=== PATIENT | female | born 1985 | race Caucasian/White ===

== ENCOUNTER 2016-10-20 07:49 | Inpatient (IN) | payer BC ==
[2016-10-16 15:52] VITALS: BMI 43.0
[2016-10-20] MEDS ORDERED: ceFAZolin 3 GM in SODIUM CHLORIDE 0.9% 100 ML IVPB ONE (08:04)
[2016-10-20] MEDS ORDERED: LACTATED RINGERS 1,000 ML IV ONE (08:04)
[2016-10-20] MEDS ORDERED: CITRIC ACID-SODIUM CITRATE 15 ML CUP PO ONE (08:04)
[2016-10-20] MEDS ORDERED: LACTATED RINGERS 1,000 ML IV SCH ×2 (08:15→11:00)
[2016-10-20 08:58] LABS: Basophils # (A) 0.1 k/uL (0-0.2); Basophils % (A) 1 %; CHCM 34.5; Eosinophils # (A) 0.3 k/uL (0-0.7); Eosinophils % (A) 3 %; HCT 35.2 % (34.0-46.0); HDW 3.38; HGB 11.7 gm/dL (11.4-16.0); Luc # (Auto) 0.11; Luc % (Auto) 1; Lymphocytes % (A) 20 %; MCH 30.1 pg (25.0-35.0); MCHC 33.3 g/dL (31.0-37.0); MCV 90.4 fL (80.0-100.0); Mean Platelet Volume 7.7; Monocytes # (A) 0.5 k/uL (0-1.0); Monocytes % (A) 5 %; Neutrophils # (A) 7.1 k/uL (1.3-7.7); Neutrophils % (A) 70 %; RDW 14.2 % (11.5-15.5); WBC 10.1 k/uL (3.8-10.6); WBC (Perox) 10.48
[2016-10-20] MEDS ORDERED: PHENYLEPHRINE-0.9% NACL SYG 1 MG/10 ML SYRINGE ONE (09:53)
[2016-10-20] MEDS ORDERED: MORPHINE SULFATE (PF) 0.3 MG/0.3 ML SYR ONE (09:53)
[2016-10-20] MEDS ORDERED: KETOROLAC 30 MG/ML 1 ML VIAL ONE (09:53)
[2016-10-20] MEDS ORDERED: OXYTOCIN 10 UNIT/ML 1 ML VIAL IM ONE (09:53)
[2016-10-20] MEDS ORDERED: NALBUPHINE 10 MG/ML AMPUL ONE (09:53)
[2016-10-20] MEDS ORDERED: ONDANSETRON 4 MG/2 ML VIAL ONE (09:53)
[2016-10-20] MEDS ORDERED: ACETAMINOPHEN TAB 325 MG TAB PO PRN (10:48)
[2016-10-20] MEDS ORDERED: diphenhydrAMINE 50 MG CAP PO PRN (10:48)
[2016-10-20] MEDS ORDERED: METOCLOPRAMIDE 5 MG/ML 2 ML VIAL IVP PRN (10:48)
[2016-10-20] MEDS ORDERED: LANOLIN CREAM 5 GM TUBE TOPICAL PRN (10:48)
[2016-10-20] MEDS ORDERED: diphenhydrAMINE 50 MG/ML 1 ML VIAL IVP PRN ×2 (10:48)
[2016-10-20] MEDS ORDERED: diphenhydrAMINE 25 MG CAP PO PRN (10:48)
[2016-10-20] MEDS ORDERED: Acetaminophen-Codeine 300-30mg TAB PO PRN (10:48)
[2016-10-20] MEDS ORDERED: MEASLES-MUMPS-RUBELLA VACC/PF 12,500 UNIT/0.5 ML VIAL SQ ONE (10:48)
[2016-10-20] MEDS ORDERED: ZOLPIDEM 5 MG TAB PO PRN (10:48)
--- NOTE | 2016-10-20 10:55 | P.HPOB ---
History of Present Illness H&P Date: 10/20/16 Chief Complaint: 39-2/7 weeks, previous section, requesting repeat with tubal ligat The patient is a 31-year-old 4 para 2012 admitted at 39-2/7 weeks as established by last menstrual period and confirmed by 9 week ultrasound. She is admitted with a history of 2 previous sections and requesting a repeat with intraoperative tubal ligation. Consent was signed to that effect in the office. Her has been essentially otherwise uncomplicated though she is morbidly obese and has a been found to be rubella nonimmune. Group B strep status is negative. 4 para 201-2 previous term sections without complication. She did have one early miscarriage not requiring D&C. Current statistics are listed in history present illness. EDC of 10/25/2016 was established by last menstrual period and confirmed by 9 week ultrasound. Laboratory workup done traits of blood type of O+ with a negative antibody screen. Rubella status is nonimmune. Remainder of the laboratory workup was within normal limits. Early Glucola was elevated but followed by a normal three-hour glucose tolerance test. Second trimester Glucola was within normal limits. Group B strep status is negative Gynecologic history is unremarkable with no history of any infections to include STDs. Review of Systems Review of systems is confined to history of present illness. Past Medical History Past Medical History: Asthma, Musculoskeletal Disorder Additional Past Medical History / Comment(s): Scoliosis History of Any Multi-Drug Resistant Organisms: None Reported Past Surgical History: Section Additional Past Surgical History / Comment(s): Oral surg. Past Anesthesia/Blood Transfusion Reactions: No Reported Reaction Past Psychological History: Depression Additional Psychological History / Comment(s): treated with wellbutrin Smoking Status: Current every day smoker Past Alcohol Use History: None Reported Past Drug Use History: None Reported - Past Family History Mother Family Medical History: No Reported History Medications and Allergies Home Medications Medication Instructions Recorded Confirmed Type #79/Iron Asp Gly/FA#1 1 each PO DAILY 10/16/16 10/20/16 History [Prenate Elite Tablet] Allergies Allergy/AdvReac Type Severity Reaction Status Date / Time No Known Allergies Allergy Verified 10/20/16 08:03 Exam - Vital Signs Vital signs: Vital Signs Temp Pulse Resp BP 10/20/16 08:14 96.9 F L 86 18 146/79 Intake and Output 10/19/16 10/20/16 10/20/16 22:59 06:59 14:59 Other: Weight 127.006 kg Patient Weight 10/21/16 06:59 Weight 127.006 kg In general, this is a morbidly obese white female in no acute distress. Her heart has a regular rhythm and rate without murmur. Her lungs are clear to auscultation bilaterally in all dalton. Her abdomen is obese, nondistended, gravid, has normal active bowel sounds, soft, nontender, and without any palpable masses aside from the uterine fundus. Her extremities without any cyanosis, clubbing, or significant edema and are nontender to palpation bilaterally. Digital cervical exam in addition is deferred. Results Result Diagrams: 10/20/16 08:30 Assessment and Plan (1) Previous section Status: Acute (2) Family planning Status: Acute (3) Term Status: Acute Plan: The patient is admitted for repeat low transverse section with intraoperative tubal ligation using Filshie clips. The risks and complications of the procedures have been thoroughly discussed including the permanent nature tubal ligation as well as its the failure rate and subsequent risk for ectopic . She has understood all this and agreed to proceed.
[2016-10-20] MEDS: OXYTOCIN 30 UNITS/500 ML NS 30 UNIT in SALINE 1 500ML.BAG IV SCH ×3 (10:59→22:27)
--- NOTE | 2016-10-20 11:02 | P.OP ---
Date of Procedure: 10/20/16 Preoperative Diagnosis: #1. 39-2/7 weeks intrauterine , previous section x2 #2. Undesired fertility Postoperative Diagnosis: Same Procedure(s) Performed: #1. Repeat low transverse section #2. Intraoperative bilateral tubal occlusion with Filshie clips Anesthesia: spinal Surgeon: Jose Ha Briquette Machine Operator Helper #1: Liberty Ye Estimated Blood Loss (ml): 500 IV fluids (ml): 1,400 Urine output (ml): 200 Pathology: other (Placenta) Condition: stable Disposition: floor Operative Findings: The patient was taken to the operating room where she was delivered of a viable 9 lbs. 6 oz. baby boy with Apgars of 8 at 1 minute and 9 at 5 minutes. The intraoperative uterine findings were essentially normal with normal uterus, tubes, and ovaries bilaterally. Was a moderate amount of scarring at the level of the fascia and muscles while the uterus remained relatively without scar. The placenta was delivered manually, intact, and grossly normal with a grossly normal three-vessel cord. Description of Procedure: The patient was prepped and draped in usual fashion after spinal anesthesia was administered by the anesthesiologist. A Pfannenstiel incision was made through pre-existing scar and extended into the abdominal cavity with minimal difficulty. The only significant the issue was some moderate scarring at the level of the fascia and muscles. The Dante self-retaining wound retractor was placed and the abdominal cavity in standard fashion. The bladder peritoneum was noted to be scarred somewhat high and therefore was elevated, incised, and reflected distally. The uterus was also significantly dextrorotated. A 2 cm incision was made in the transverse plane of the lower uterine segment to enter the uterus at which time clear fluid was noted. The incision was extended in both directions using the bandage scissors. The head was delivered up and through the incision where the nose and mouth were thoroughly suctioned. The remainder of the was delivered onto the field where the cord was doubly clamped, cut, and passed for resuscitative measures with weight and Apgars as noted above. A segment of cord was doubly clamped, cut, and set aside should cord gases become necessary. The placenta was delivered manually and intact as noted above. The uterus was exteriorized and the interior cavity of the uterus swept of any remaining placental or membranous fragments. The margins of the incision were grasped with Mulligan clamps and the incision closed in a single running locking stitch of 0 chromic catgut from margin to margin. Any small points of bleeding were then made hemostatic with the Bovie. The posterior cul-de-sac was suctioned with a guard and the uterine and ovarian findings were normal as noted above. After reaffirming the patient's desire for tubal ligation, a Filshie clip was placed across each fallopian tube approximately 2-3 cm from the cornu of the uterus and firmly affixed. The uterus was replaced within the abdominal cavity and the gutters were swept of any remaining blood, fluid, or clot. The incision was reexamined and any further small points of bleeding noted remained hemostatic with the Bovie. The Dante wound retractor was removed. Once hemostasis was adequate, a wide loose dgweuh-hn-yhcww stitch was utilized to loosely reapproximate the rectus muscles. The layer of rectus muscles was then examined and made hemostatic with the Bovie. The fascia was closed with 2 running stitches of 0 Vicryl proceeding from the lateral margins to the midpoint. The subcutaneous tissues were irrigated, made hemostatic with the Bovie, and reapproximated with a running stitch of 30 plain catgut. The skin was reapproximated with a running subcuticular stitch of 4-0 Vicryl followed by half-inch Steri-Strips placed with Mastisol. Estimated blood loss for the case was approximate 500 mL. There were no complications. All sponge, instrument, and needle counts were correct. Both mother and are resting comfortably in recovery.
[2016-10-20] MEDS: KETOROLAC 30 MG/ML 1 ML VIAL IVP PRN (15:51)
[2016-10-20] MEDS: SENNOSIDES-DOCUSATE SODIUM 1 EACH TAB PO SCH (19:57)
[2016-10-21] MEDS: KETOROLAC 30 MG/ML 1 ML VIAL IVP PRN ×2 (01:58→09:09)
[2016-10-21 07:29] LABS: Basophils % (A) 0 %; CH 30.9; CHCM 34.1; Eosinophils # (A) 0.3 k/uL (0-0.7); Eosinophils % (A) 2 %; HCT 31.3 % (34.0-46.0); HDW 3.33; HGB 10.4 gm/dL (11.4-16.0); Luc # (Auto) 0.08; Luc % (Auto) 1; Lymphocytes # (A) 1.8 k/uL (1.0-4.8); Lymphocytes % (A) 16 %; MCH 30.4 pg (25.0-35.0); MCHC 33.3 g/dL (31.0-37.0); MCV 91.3 fL (80.0-100.0); Mean Platelet Volume 7.6; Monocytes # (A) 0.6 k/uL (0-1.0); Monocytes % (A) 5 %; Neutrophils # (A) 8.4 k/uL (1.3-7.7); Neutrophils % (A) 76 %; RBC 3.43 m/uL (3.80-5.40); RDW 14.3 % (11.5-15.5); WBC 11.1 k/uL (3.8-10.6)
--- NOTE | 2016-10-21 07:40 | P.PN ---
Objective - Vital Signs Vital signs: Vital Signs Temp 98.3 F 10/21/16 04:00 Pulse 75 10/21/16 04:00 Resp 18 10/21/16 04:00 BP 128/75 10/21/16 04:00 Pulse Ox 100 10/21/16 04:00 Intake & Output 10/20/16 10/21/16 10/21/16 18:59 06:59 18:59 Intake Total 500 975 Output Total 1550 1400 Balance -1050 -425 Weight 127.006 kg Intake: IV 500 375 Lactated Ringers 1,000 ml 300 375 @ 125 mls/hr IV .Q8H RIC Rx#:[id number] Lactated Ringers 1,000 ml 100 @ 4000 mls/hr IV .Q15M ONE Rx#:[id number] ceFAZolin 3 gm In Sodium 100 Chloride 0.9% 100 ml @ 100 mls/hr IVPB ONCE ONE Rx#:[id number] Oral 600 Output: Urine 250 600 Uretheral (Herrera) 150 Emesis 800 800 Estimated Blood Loss 500 Other: Voiding Method Indwelling Catheter # Voids 1 - Labs CBC & Chem 7: 10/20/16 08:30
[2016-10-21] MEDS: SENNOSIDES-DOCUSATE SODIUM 1 EACH TAB PO SCH ×2 (09:10→21:17)
--- NOTE | 2016-10-21 09:17 | P.PN ---
Progress Note - Text 0904 Anesthesia POD 1. Patient is status post section under spinal anesthesia with intra-thecal preservative free morphine rate 100 g. Moderate pruritus now resolving, good post-op analgesia, and no headache or other complication.
[2016-10-21] MEDS: IBUPROFEN 600 MG TAB PO PRN (16:37)
[2016-10-21] MEDS: Acetaminophen-Codeine 300-30mg TAB PO PRN (21:16)
[2016-10-22] MEDS: IBUPROFEN 600 MG TAB PO PRN (05:57)
[2016-10-22] MEDS: SENNOSIDES-DOCUSATE SODIUM 1 EACH TAB PO SCH (08:47)
[2016-10-22] MEDS: Acetaminophen-Codeine 300-30mg TAB PO PRN (08:48)
[2016-10-22 08:55] VITALS: BP 149/76; PULSE 87; RESP 17; TEMP 98
--- NOTE | 2016-10-22 10:19 | P.DS ---
Providers Date of admission: 10/20/16 07:49 Expected date of discharge: 10/22/16 Attending physician: Jose Ha Primary care physician: [facility] Hospital Course: This is a 31-year-old female 3 para 2001 EDC 10/25/2016 at 39-2/7 weeks ' gestation. Patient presented for repeat section with tubal ligation. was essentially unremarkable, rubella status nonimmune. Please see dictated history and physical for details. Patient underwent a repeat low transverse section and tubal ligation. She gave to a liveborn male with scores of 8 and 9 at one and 5 minutes respectively. Infant weighed 9 lbs. 6 oz. or 4240 g. There was an estimated blood loss recorded of 500 mL's. Please see dictated delivery note for details. Postoperatively the patient has done well. Vital signs are stable this morning and she is afebrile. Circumcision has been performed on her son and he is doing well also. Patient's incision is clean and dry, well approximated, Steri-Strips applied, non-erythematous, no drainage. Fundus is firm and in the midline, symmetric, nontender, 18 week size. Extremities reveal trace edema. Chest is clear. Patient is being discharged home today in good condition. She will follow-up in the office with Dr. Ha in 2 weeks for incision check. I reminded her to call with any fevers shakes or chills, foul smelling or copious lochia, with the passage of large blood clots, with any pain not alleviated by over-the- counter products, or indeed with any concerns. She will use blyl-xso-orqmzrd Aleve or Advil as needed for pain. She may also use 200 mg ibuprofen tablets, for every 8 hours as needed. I've asked her to call with any fevers shakes or chills, foul smelling or copious lochia, with any pain not alleviated by over- the-counter products, with any redness or drainage of the incision, or indeed with any concerns. No driving for 2 weeks. No heavy lifting greater than 25 pounds. Patient Condition at Discharge: Good Plan - Discharge Summary Discharge Medication List #79/Iron Asp Gly/FA#1 [Prenate Elite Tablet] 1 each PO DAILY 01/16/17 [ History] Follow up Appointment(s)/Referral(s): Jose Ha MD [STAFF PHYSICIAN] - 2 Weeks Discharge Disposition: HOME SELF-CARE
== END 2016-10-22 13:24 | disposition home or self-care (01) | DRG 766 ==
LOC: 4FBP 07:49
PROVIDERS: ADMIT Obstetrics & Gynecology; ATTEND Obstetrics & Gynecology
PROC: 10D00Z1 Extraction of Products of Conception, Low, Open Approach (ICD-10-PCS; principal; 2016-10-20 10:00)
PROC: 0UL70CZ Occlusion of Bilateral Fallopian Tubes with Extraluminal Device, Open Approach (ICD-10-PCS; principal; 2016-10-20 10:00)
DX: O34.211 Maternal care for low transverse scar from previous cesarean delivery (principal); E66.01 Morbid (severe) obesity due to excess calories; Z37.0 Single live birth; O99.214 Obesity complicating childbirth; O99.334 Smoking (tobacco) complicating childbirth; F17.200 Nicotine dependence, unspecified, uncomplicated; Z3A.39 39 weeks gestation of pregnancy; Z30.2 Encounter for sterilization
CPT/HCPCS: 85025; 86850; 86900; 86901; 88307; 90471; 90707

== ENCOUNTER → 2017-05-17 | Outpatient (CLI) | payer OTHER ==
--- NOTE | 2017-05-17 11:16 | XR ---
EXAMINATION TYPE: XR knee complete RT DATE OF EXAM: 05/17/2017 CLINICAL HISTORY: Pain from a slip and fall TECHNIQUE: Three views of the right knee are obtained. COMPARISON: None. FINDINGS: There is no acute fracture/dislocation evident in right knee. The tri-compartment joint s paces appear within normal limits. The overlying soft tissue appears unremarkable. IMPRESSION: There is no acute fracture or dislocation in the right knee.
== END | disposition home or self-care (01) ==
LOC: RADXRMAIN 10:45
PROVIDERS: ATTEND Emergency Medicine
DX: S80.01XA Contusion of right knee, initial encounter (principal)

== ENCOUNTER → 2020-08-20 | Outpatient (CLI) | payer OTHER ==
[2020-08-20 14:30] LABS: Basophils # (A) 0.1 k/uL (0-0.2); Basophils % (A) 1 %; Eosinophils # (A) 0.3 k/uL (0-0.7); Eosinophils % (A) 3 %; HCT 44.3 % (34.0-46.0); HGB 14.2 gm/dL (11.4-16.0); Lymphocytes # (A) 2.2 k/uL (1.0-4.8); Lymphocytes % (A) 22 %; MCH 29.1 pg (25.0-35.0); MCHC 32.2 g/dL (31.0-37.0); MCV 90.4 fL (80.0-100.0); Mean Platelet Volume 7.1; Monocytes # (A) 0.4 k/uL (0-1.0); Monocytes % (A) 4 %; Neutrophils % (A) 69 %; Platelet Count 287 k/uL (150-450); RDW 13.4 % (11.5-15.5)
== END | disposition home or self-care (01) ==
LOC: LABPAT 12:40
PROVIDERS: ATTEND Obstetrics & Gynecology
DX: Z01.818 Encounter for other preprocedural examination (principal); N92.0 Excessive and frequent menstruation with regular cycle
CPT/HCPCS: 36415; 85025

== ENCOUNTER 2020-08-24 07:49 | Day surgery (SDC) | payer BC, OTHER ==
[2020-08-19 14:40] VITALS: BMI 38.3
[~2020-08-24 07:49] MED LIST: DEXAMETHASONE SOD PHOSPHATE 4 MG/ML 1 ML VIAL IV ONE; HYDROmorphone 0.5 MG/0.5 ML SYRINGE IVP PRN; LACTATED RINGERS 1,000 ML IV SCH; LIDOCAINE 1% (10MG/ML) FOR IV START INTRADERMA PRN; MIDAZOLAM 2 MG/2 ML VIAL IV PRN; ONDANSETRON 4 MG/2 ML VIAL IVP ONE; Pre Op ABX Message 1 EACH MISC MISCELLANE ONE
[2020-08-24] MEDS ORDERED: KETOROLAC 15 MG/ML 1 ML VIAL ONE (09:17)
[2020-08-24] MEDS ORDERED: MIDAZOLAM 2 MG/2 ML VIAL ONE (09:17)
[2020-08-24] MEDS ORDERED: LIDOCAINE 1% INJ 10MG/ML (20 ML MDV) ONE (09:17)
[2020-08-24] MEDS ORDERED: PROPOFOL 10 MG/ML 20 ML VIAL IV ONE (09:17)
[2020-08-24] MEDS ORDERED: fentaNYL (PF) 50 MCG/ML 2 ML AMP ONE (09:17)
[2020-08-24] MEDS ORDERED: diphenhydrAMINE 50 MG/ML 1 ML VIAL IVP PRN (10:04)
[2020-08-24] MEDS ORDERED: KETOROLAC 15 MG/ML 1 ML VIAL IVP PRN (10:04)
[2020-08-24] MEDS ORDERED: ONDANSETRON 4 MG/2 ML VIAL IVP PRN (10:04)
[2020-08-24] MEDS ORDERED: METOCLOPRAMIDE 5 MG/ML 2 ML VIAL IVP PRN (10:04)
[2020-08-24] MEDS ORDERED: IBUPROFEN 600 MG TAB PO PRN (10:04)
[2020-08-24] MEDS ORDERED: SIMETHICONE 80 MG CHEWABLE PO PRN (10:04)
[2020-08-24] MEDS ORDERED: Acetaminophen-Codeine 300-30mg TAB PO PRN ×2 (10:04)
--- NOTE | 2020-08-24 10:13 | P.OP ---
Date of Procedure: 08/24/20 Preoperative Diagnosis: #1. Menorrhagia Postoperative Diagnosis: Same Procedure(s) Performed: #1. Diagnostic hysteroscopy #2. Endometrial curettage #3. NovaSure endometrial ablation Anesthesia: other (Gen. by face mask) Surgeon: Jose Ha Estimated Blood Loss (ml): 5 IV fluids (ml): 300 Urine output (ml): 10 Pathology: other (Endometrial curettings) Condition: stable Disposition: PACU Operative Findings: Preoperative pelvic examination demonstrated a midplane to slightly retroverted 5-6 week uterus which was normal in shape and mobile. The adnexa were normal and without mass bilaterally. Intraoperatively, the cervix was approximate 4 synovators while uterus itself was approximate 6 cm in depth. The diagnostic hysteroscope failed to produce any reasonable pictures preprocedurally of the endometrium as was significant debris floating in the matrix as well as blood. The settings for the NovaSure tool were a length of 6.0 cm, a width of 4.6 cm for a total power 152 W. After a total run time of 68 seconds, the base unit read "procedure complete." The postprocedural result appeared to be generally very good throughout the there was 1 portion at the right cornu which appeared to not have the array touching it as perhaps it was a little bit deeper than the remainder of the endometrial cavity. The patient is a borderline candidate for vaginal hysterectomy should it become necessary. Description of Procedure: The patient was prepped and draped in usual fashion after general anesthesia was administered by the anesthesiologist. A weighted speculum was placed on the anterior lip of the cervix grasped with a single-tooth tenaculum after catheterizing the bladder approximate 10 mL of clear new urine. The sound was utilized to measure the uterine depth to be 10 cm while the cervix was approximate 4 cm. Serial dilation was carried out to admit the diagnostic hysteroscope. Both the myoma sure scope and the standard Striker scope were utilized and were unable to demonstrate adequate visualization of the in vitro cavity for any clear pictures. There did not appear to be any issues with perforation or significant pathology. The decision was made to proceed with the ablation and the scope was set aside. Given the degree of shaggy and a mutual tissue that was noted with the initial diagnostic hysteroscopy, decision was made to proceed with a D&C and advance. A medium endometrial curette was introduced into the endometrial cavity and thorough and circumferential curettage carried out bringing the tissue onto a Telfa placed in the vagina. The NovaSure tool was then placed into the endometrial cavity, opened, and seated well area the settings were as noted above with a length of 6.0 cm, a width of 4.6 and meters for a total power of 152 W. The cavity check was attempted and passed without difficulty. The tool was enabled and the run was started. After a run time of 68 seconds, the base unit disengaged and read "procedure complete." The 2 was closed, removed, and discarded. The diagnostic scope was replaced and the cavity was able to be seen well with an excellent result throughout though the right cornu appeared to have an area where the tip of the array failed to reach into that corner as it was perhaps deeper than the remainder of the cavity. All instrumentation was then removed and a small point of bleeding at one of the tenaculum sites was made hemostatic with pressure. Estimated blood loss for the case is approximately 5 mL. There were no complications. All sponge, instrument, and needle counts were correct. The patient tolerated the procedure well and proceeded to the recovery room in stable condition.
[2020-08-24 10:14] VITALS: TEMP 98.1
[2020-08-24] MEDS ORDERED: LACTATED RINGERS 1,000 ML IV SCH (10:15)
[2020-08-24 10:58] VITALS: RESP 16
[2020-08-24 11:09] VITALS: BP 118/73; PULSE 71
== END 2020-08-24 11:31 | disposition home or self-care (01) ==
LOC: OR 07:49
PROVIDERS: ATTEND Obstetrics & Gynecology
DX: N92.0 Excessive and frequent menstruation with regular cycle (principal); J45.909 Unspecified asthma, uncomplicated; M41.9 Scoliosis, unspecified; Z98.891 History of uterine scar from previous surgery; Z98.51 Tubal ligation status; Z98.890 Other specified postprocedural states; F17.210 Nicotine dependence, cigarettes, uncomplicated; Z82.49 Family history of ischemic heart disease and other diseases of the circulatory system; Z82.3 Family history of stroke; Z80.41 Family history of malignant neoplasm of ovary; Z83.42 Family history of familial hypercholesterolemia; Z79.1 Long term (current) use of non-steroidal anti-inflammatories (NSAID); Z79.899 Other long term (current) drug therapy; Z88.0 Allergy status to penicillin; Z91.048 Other nonmedicinal substance allergy status
CPT/HCPCS: 81025; 58563; J2250; J1100; J2405; J2001; J3010; J1885; J2704

== ENCOUNTER 2020-09-23 17:53 | Inpatient (IN) | payer OTHER ==
--- NOTE | 2020-09-23 18:05 | ED ---
Back Pain HPI - General Chief Complaint: Back Pain/Injury Stated Complaint: Back pain Time Seen by Provider: 09/23/20 18:02 Source: patient Limitations: no limitations - History of Present Illness Initial Comments: 35-year-old female with history of chronic back pain presenting to emergency by with a chief complaint of back pain. Patient reports the pain started yesterday but it is worse today, particularly in the morning. Patient reports pain is sharp in nature and is located along the left upper lumbar region. Patient states the pain is localized and exacerbated with any movement. Patient does report nausea with one episode of nonbilious and nonbloody vomiting. Patient denies any history of kidney stones. Denies any urinary or vaginal symptoms. Denies hematuria, hematochezia or melena. Denies any saddle anesthesia, urinary retention with overflow incontinence or bowel incontinence. - Related Data Home Medications Medication Instructions Recorded Confirmed DULoxetine HCL [Cymbalta] 60 mg PO HS 08/19/20 09/23/20 Pantoprazole Sodium [Protonix] 40 mg PO HS 09/23/20 09/23/20 Allergies Allergy/AdvReac Type Severity Reaction Status Date / Time No Known Allergies Allergy Verified 09/23/20 19:07 Review of Systems ROS Statement: Those systems with pertinent positive or pertinent negative responses have been documented in the HPI. ROS Other: All systems not noted in ROS Statement are negative. Past Medical History Past Medical History: Asthma, Musculoskeletal Disorder Additional Past Medical History / Comment(s): Scoliosis History of Any Multi-Drug Resistant Organisms: None Reported Past Surgical History: Section, Tubal Ligation Additional Past Surgical History / Comment(s): Oral surg., C/S x3, endometrial ablation Past Anesthesia/Blood Transfusion Reactions: No Reported Reaction Past Psychological History: Depression Smoking Status: Current every day smoker Past Alcohol Use History: Occasional Past Drug Use History: Marijuana - Past Family History Mother Family Medical History: No Reported History General Exam Limitations: no limitations General appearance: alert, in no apparent distress, obese Head exam: Present: atraumatic, normocephalic, normal inspection Eye exam: Present: normal appearance, PERRL, EOMI Pupils: Present: normal accommodation ENT exam: Present: normal exam, normal oropharynx, mucous membranes moist, TM's normal bilaterally, normal external ear exam Neck exam: Present: normal inspection, full ROM. Absent: tenderness Respiratory exam: Present: normal lung sounds bilaterally. Absent: respiratory distress, wheezes, rales, rhonchi, stridor Cardiovascular Exam: Present: regular rate, normal rhythm, normal heart sounds. Absent: systolic murmur, diastolic murmur GI/Abdominal exam: Present: soft. Absent: distended, tenderness, guarding Extremities exam: Present: normal inspection, full ROM, normal capillary refill. Absent: tenderness, pedal edema, joint swelling Back exam: Present: normal inspection, full ROM, tenderness, CVA tenderness (L). Absent: paraspinal tenderness, vertebral tenderness Neurological exam: Present: alert, oriented X3, normal gait Psychiatric exam: Present: normal affect, normal mood Skin exam: Present: warm, dry, intact, normal color Course Vital Signs 09/23/20 09/23/20 09/23/20 17:55 18:57 19:26 Temperature 97.8 F Pulse Rate 84 74 Respiratory 20 18 19 Rate Blood Pressure 144/82 127/82 O2 Sat by Pulse 98 99 Oximetry Medical Decision Making - Medical Decision Making 35-year-old female presenting to the emergency department with a chief complaint of back pain. On physical examination, this appears to be more of right CVA tenderness rather than any paraspinal or midline vertebral tenderness. I do have a concern for a renal stones further workup was obtained. UA reveals significant amount of red blood cells, some white blood cells as well as elevated leukocyte esterase. This was a voided sample so there is some squamous cells as well. Urine culture pending. CBC reveals leukocytosis of 14,000. Patient did have some nausea and vomiting and was treated with antibiotics, anal gesia and antiemetics. Patient was also given 1 g Rocephin. Her vitals are stable in the ED. CT of the abdomen and pelvis reveals a large renal stone in the proximal ureter measuring approximately 615 mm. Urology was consulted who advised admission and scheduled doses of Rocephin along with symptomatically control. Nothing by mouth. Case was discussed with Admitting is Dr Banks. - Lab Data Result diagrams: 09/23/20 18:29 09/23/20 18:29 Lab Results 09/23/20 09/23/20 09/23/20 Range/Units 18:29 18:29 18:40 WBC 14.4 H (3.8-10.6) k/uL RBC 4.83 (3.80-5.40) m/uL Hgb 14.3 (11.4-16.0) gm/dL Hct 42.2 (34.0-46.0) % MCV 87.3 (80.0-100.0) fL MCH 29.5 (25.0-35.0) pg MCHC 33.8 (31.0-37.0) g/dL RDW 13.5 (11.5-15.5) % Plt Count 262 (150-450) k/uL MPV 7.3 Neutrophils % 84 % Lymphocytes % 9 % Monocytes % 4 % Eosinophils % 2 % Basophils % 1 % Neutrophils # 12.0 H (1.3-7.7) k/uL Lymphocytes # 1.3 (1.0-4.8) k/uL Monocytes # 0.6 (0-1.0) k/uL Eosinophils # 0.3 (0-0.7) k/uL Basophils # 0.1 (0-0.2) k/uL Sodium 137 (137-145) mmol/L Potassium 4.5 (3.5-5.1) mmol/L Chloride 110 H (98-107) mmol/L Carbon Dioxide 19 L (22-30) mmol/L Anion Gap 8 mmol/L BUN 5 L (7-17) mg/dL Creatinine 0.70 (0.52-1.04) mg/dL Est GFR (CKD-EPI)AfAm >90 (>60 ml/min/1.73 sqM) Est GFR (CKD-EPI)NonAf >90 (>60 ml/min/1.73 sqM) Glucose 112 H (74-99) mg/dL Calcium 9.7 (8.4-10.2) mg/dL Total Bilirubin 1.0 (0.2-1.3) mg/dL AST 34 (14-36) U/L ALT 20 (4-34) U/L Alkaline Phosphatase 115 (38-126) U/L Total Protein 7.3 (6.3-8.2) g/dL Albumin 4.3 (3.5-5.0) g/dL Urine Color Yellow Urine Appearance Cloudy H (Clear) Urine pH 5.5 (5.0-8.0) Ur Specific [place] 1.027 (1.001-1.035) Urine Protein 2+ H (Negative) Urine Glucose (UA) Negative (Negative) Urine Ketones 1+ H (Negative) Urine Blood Moderate H (Negative) Urine Nitrite Negative (Negative) Urine Bilirubin Negative (Negative) Urine Urobilinogen <2.0 (<2.0) mg/dL Ur Leukocyte Esterase Moderate H (Negative) Urine RBC 146 H (0-5) /hpf Urine WBC 63 H (0-5) /hpf Ur Squamous Epith Cells 19 H (0-4) /hpf Calcium Oxalate Crystal Occasional H (None) /hpf Amorphous Sediment Rare H (None) /hpf Urine Bacteria Rare H (None) /hpf Hyaline Casts 11 H (0-2) /lpf Urine Mucus Many H (None) /hpf Disposition Clinical Impression: Left nephrolithiasis, Hydronephrosis, left Disposition: ADMITTED IP TO THIS HOSP Condition: Stable Is patient prescribed a controlled substance at d/c from ED?: No Referrals: Fortunato Gonzalez MD [Primary Care Provider] - 1-2 days Time of Disposition: 20:36
[2020-09-23] MEDS ORDERED: ONDANSETRON 4 MG/2 ML VIAL IVP STA (18:16)
[2020-09-23] MEDS ORDERED: SODIUM CHLORIDE 0.9% 1,000 ML IV STA (18:16)
[2020-09-23] MEDS ORDERED: KETOROLAC 15 MG/ML 1 ML VIAL IVP STA (18:16)
[2020-09-23 18:47] LABS: Basophils # (A) 0.1 k/uL (0-0.2); Basophils % (A) 1 %; Eosinophils # (A) 0.3 k/uL (0-0.7); Eosinophils % (A) 2 %; HCT 42.2 % (34.0-46.0); HGB 14.3 gm/dL (11.4-16.0); Lymphocytes # (A) 1.3 k/uL (1.0-4.8); Lymphocytes % (A) 9 %; MCH 29.5 pg (25.0-35.0); MCHC 33.8 g/dL (31.0-37.0); MCV 87.3 fL (80.0-100.0); Mean Platelet Volume 7.3; Monocytes # (A) 0.6 k/uL (0-1.0); Monocytes % (A) 4 %; Neutrophils % (A) 84 %; Platelet Count 262 k/uL (150-450); RBC 4.83 m/uL (3.80-5.40); RDW 13.5 % (11.5-15.5); WBC 14.4 k/uL (3.8-10.6)
[2020-09-23 18:59] LABS: Amorphous Sediment,Urine Rare /hpf; Appearance,Urine Cloudy (Clear); Bacteria,Urine Rare /hpf; Bilirubin,Urine Negative (Negative); Blood,Urine Moderate (Negative); Calcium Oxalate Crystals,Urine Occasional /hpf; Color,Urine Yellow; Glucose,Urine (UA) Negative (Negative); Hyaline Casts,Urine 11 /lpf (0-2); Ketones,Urine 1+ (Negative); Leukocyte Esterase,Urine Moderate (Negative); Mucus,Urine Many /hpf; Nitrite,Urine Negative (Negative); PH, Urine 5.5 (5.0-8.0); Protein,Urine 2+ (Negative); RBC,Urine 146 /hpf (0-5); Specific Gravity,Urine 1.027 (1.001-1.035); Squamous Epithelial Cell,Urine 19 /hpf (0-4); Urobilinogen,Urine <2.0 mg/dL (<2.0); WBC,Urine 63 /hpf (0-5)
[2020-09-23] MEDS ORDERED: cefTRIAXone IN SWFI 1,000 MG/10 ML SYRINGE IVP STA (19:20)
[2020-09-23 19:24] LABS: ALT 20 U/L (4-34); AST 34 U/L (14-36); African American GFR (CKD) >90 (>60 ml/min/1.73 sqM); Albumin 4.3 g/dL (3.5-5.0); Alkaline Phosphatase 115 U/L (38-126); Anion Gap 8 mmol/L; Blood Urea Nitrogen 5 mg/dL (7-17); Calcium 9.7 mg/dL (8.4-10.2); Carbon Dioxide 19 mmol/L (22-30); Chloride 110 mmol/L (98-107); Glucose 112 mg/dL (74-99); Non-African American GFR(CKD) >90 (>60 ml/min/1.73 sqM); Potassium 4.5 mmol/L (3.5-5.1); Sodium 137 mmol/L (137-145); Total Protein 7.3 g/dL (6.3-8.2)
[2020-09-23] MEDS ORDERED: MORPHINE SULFATE 4 MG/ML SYRINGE IVP STA (19:25)
--- NOTE | 2020-09-23 19:49 | CT ---
History: ITS.REASON CT Reason: conern for stone Exam: CT ABDOMEN + PELVIS Without Contrast Technique more: CTDI is 22.5 mGy and DLP is 1240.4 mGy-cm. Technique more: This CT exam was performed using one or more of the following dose reduction techniques: automated exposure control, adjustment of the mA and/or kV according to patient size, and/or use of iterative reconstruction technique. Comparison: None available FINDINGS: Lung bases are clear. Proximal left ureteral stone measuring up to 6 mm in greatest presenting transverse axis and 1.5 cm CC dimension which likely may not spontaneously pass, recommend urology consult. Mild-to- moderate left hydronephrosis with perinephric stranding, edema which may be reactive, forniceal rupture with superimposed infected obstructed system not excluded. No intrarenal stones. The other abdominal solid organs, gallbladder and abdominal aorta appear within limits on noncontrast imaging. No bowel dilation or free air. Normal caliber appendix without secondary signs. 1.8 cm cystic focus suggested left ovary axial 131. The right ovary is not well distinguished from adjacent unopacified bowel. Bilateral fallopian tube clips noted. The uterus and mostly collapsed bladder appear unremarkable on noncontrast imaging. Trace pelvic free fluid. Scoliosis. IMPRESSION: Proximal left ureteral stone measuring up to 6 mm in greatest presenting transverse axis and 1.5 cm CC dimension which likely may not spontaneously pass, recommend urology consult. Plwq-ma-mavqbhbi left hydronephrosis with perinephric stranding, edema which may be reactive, forniceal rupture with superimposed infected obstructed system not excluded. No intrarenal stones.
[2020-09-23] MEDS ORDERED: HYDROmorphone 0.5 MG/0.5 ML SYRINGE IVP PRN (20:26)
[2020-09-23] MEDS ORDERED: LORazepam 2 MG/ML INJ IV PRN (20:26)
[2020-09-23] MEDS ORDERED: MORPHINE SULFATE 4 MG/ML SYRINGE IV PRN (20:26)
[2020-09-23] MEDS ORDERED: NALOXONE 0.4 MG/ML 1 ML VIAL IV PRN (20:26)
[2020-09-23] MEDS: SODIUM CHLORIDE 0.9% 1,000 ML IV SCH (21:18)
[2020-09-23] MEDS: HYDROmorphone 1 MG/ML 1 ML SYRINGE IVP PRN (23:31)
[2020-09-24] MEDS: HYDROmorphone 1 MG/ML 1 ML SYRINGE IVP PRN ×5 (02:47→20:26)
[2020-09-24] MEDS: ONDANSETRON 4 MG/2 ML VIAL IVP PRN (05:48)
[2020-09-24] MEDS: SODIUM CHLORIDE 0.9% 1,000 ML IV SCH ×2 (10:46→23:30)
--- NOTE | 2020-09-24 11:34 | P.GSCN ---
History of Present Illness Consult date: 09/24/20 Reason for Consult: left-sided ureteral stone History of present illness: This is a 35-year-old female presented to the ED with severe left flank pain, that is associated with nausea and vomiting. She underwent a CT abdomen and pelvis which showed a 1.5 cm x 6 mm stone along the left ureter with hydronephrosis. Her UA on presentation is concerning for UTI. She denies any dysuria, gross hematuria, fevers/chills. Denies any previous history of stones. This am on evaluation she still having persistent left flank pain Review of Systems - Constitutional Denies chills, Denies fever - Cardiovascular Denies chest pain, Denies shortness of breath - Respiratory Denies cough, Denies 7 - Gastrointestinal Reports abdominal pain, Reports nausea, Reports vomiting - Genitourinary Genitourinary: Reports flank pain, Reports kidney stones, Denies dysuria, Denies hematuria - Neurological Denies headaches, Denies syncope Past Medical History Past Medical History: Asthma, Musculoskeletal Disorder Additional Past Medical History / Comment(s): Scoliosis History of Any Multi-Drug Resistant Organisms: None Reported Past Surgical History: Section, Tubal Ligation Additional Past Surgical History / Comment(s): Oral surg., C/S x3, endometrial ablation Past Anesthesia/Blood Transfusion Reactions: No Reported Reaction Past Psychological History: Anxiety, Depression Additional Psychological History / Comment(s): treated with wellbutrin Smoking Status: Current every day smoker Past Alcohol Use History: Occasional Additional Past Alcohol Use History / Comment(s): 1/2ppd 15 yrs. Past Drug Use History: Marijuana Additional Drug Use History / Comment(s): edible use - Past Family History Mother Family Medical History: No Reported History Medications and Allergies Home Medications Medication Instructions Recorded Confirmed Type DULoxetine HCL [Cymbalta] 60 mg PO HS 08/19/20 09/23/20 History Pantoprazole Sodium [Protonix] 40 mg PO HS 09/23/20 09/23/20 History Allergies Allergy/AdvReac Type Severity Reaction Status Date / Time No Known Allergies Allergy Verified 09/23/20 19:07 Surgical - Exam Vital Signs Temp Pulse Resp BP Pulse Ox 97.8 F 84 20 144/82 98 09/23/20 17:55 09/23/20 17:55 09/23/20 17:55 09/23/20 17:55 09/23/20 17:55 - General well developed, well nourished, moderate distress, moderate pain - Eyes PERRL, normal ocular movement - ENT normal nares, normal mucosa - Respiratory normal expansion, normal respiratory effort - Psychiatric oriented to time, oriented to person, oriented to place, speech is normal Results - Labs 09/23/20 18:29 09/23/20 18:29 Abnormal Lab Results - Last 24 Hours (Table) 09/23/20 09/23/20 09/23/20 Range/Units 18:29 18:29 18:40 WBC 14.4 H (3.8-10.6) k/uL Neutrophils # 12.0 H (1.3-7.7) k/uL Chloride 110 H (98-107) mmol/L Carbon Dioxide 19 L (22-30) mmol/L BUN 5 L (7-17) mg/dL Glucose 112 H (74-99) mg/dL Urine Appearance Cloudy H (Clear) Urine Protein 2+ H (Negative) Urine Ketones 1+ H (Negative) Urine Blood Moderate H (Negative) Ur Leukocyte Esterase Moderate H (Negative) Urine RBC 146 H (0-5) /hpf Urine WBC 63 H (0-5) /hpf Ur Squamous Epith Cells 19 H (0-4) /hpf Calcium Oxalate Crystal Occasional H (None) /hpf Amorphous Sediment Rare H (None) /hpf Urine Bacteria Rare H (None) /hpf Hyaline Casts 11 H (0-2) /lpf Urine Mucus Many H (None) /hpf Microbiology - Last 24 Hours (Table) 09/23/20 18:40 Urine Culture - Preliminary Urine,Voided Diabetes panel 09/23/20 Range/Units 18:29 Sodium 137 (137-145) mmol/L Potassium 4.5 (3.5-5.1) mmol/L Chloride 110 H (98-107) mmol/L Carbon Dioxide 19 L (22-30) mmol/L BUN 5 L (7-17) mg/dL Creatinine 0.70 (0.52-1.04) mg/dL Glucose 112 H (74-99) mg/dL Calcium 9.7 (8.4-10.2) mg/dL AST 34 (14-36) U/L ALT 20 (4-34) U/L Alkaline Phosphatase 115 (38-126) U/L Total Protein 7.3 (6.3-8.2) g/dL Albumin 4.3 (3.5-5.0) g/dL Calcium panel 09/23/20 Range/Units 18:29 Calcium 9.7 (8.4-10.2) mg/dL Albumin 4.3 (3.5-5.0) g/dL Pituitary panel 09/23/20 Range/Units 18:29 Sodium 137 (137-145) mmol/L Potassium 4.5 (3.5-5.1) mmol/L Chloride 110 H (98-107) mmol/L Carbon Dioxide 19 L (22-30) mmol/L BUN 5 L (7-17) mg/dL Creatinine 0.70 (0.52-1.04) mg/dL Glucose 112 H (74-99) mg/dL Calcium 9.7 (8.4-10.2) mg/dL Adrenal panel 09/23/20 Range/Units 18:29 Sodium 137 (137-145) mmol/L Potassium 4.5 (3.5-5.1) mmol/L Chloride 110 H (98-107) mmol/L Carbon Dioxide 19 L (22-30) mmol/L BUN 5 L (7-17) mg/dL Creatinine 0.70 (0.52-1.04) mg/dL Glucose 112 H (74-99) mg/dL Calcium 9.7 (8.4-10.2) mg/dL Total Bilirubin 1.0 (0.2-1.3) mg/dL AST 34 (14-36) U/L ALT 20 (4-34) U/L Alkaline Phosphatase 115 (38-126) U/L Total Protein 7.3 (6.3-8.2) g/dL Albumin 4.3 (3.5-5.0) g/dL Assessment and Plan Assessment: 35-year-old female history of a 1.5x 6 mm left-sided stone. She symptomatic from her stone. Discussed with her given her UA concerning of a UTI we cannot proceed with ureteroscopy in this setting. Will plan on proceeding with stent placement. Plan: -Continue Ceftrixone -NPO past midnight, OR tomorrow for cystoscopy, left stent placement
[2020-09-24] MEDS: KETOROLAC 15 MG/ML 1 ML VIAL IVP SCH ×3 (11:37→23:29)
[2020-09-24] MEDS: SENNOSIDES 8.6 MG TAB PO SCH (20:27)
[2020-09-24] MEDS ORDERED: PANTOPRAZOLE 40 MG TABLET PO SCH (21:00)
[2020-09-24] MEDS ORDERED: DULoxetine HCL 60 MG CAPSULE.DR PO SCH (21:00)
[2020-09-25] MEDS: HYDROmorphone 1 MG/ML 1 ML SYRINGE IVP PRN (03:43)
[2020-09-25] MEDS: KETOROLAC 15 MG/ML 1 ML VIAL IVP SCH ×2 (05:51→12:26)
[2020-09-25] MEDS: SENNOSIDES 8.6 MG TAB PO SCH (08:17)
[2020-09-25] MEDS: ONDANSETRON 4 MG/2 ML VIAL IVP PRN (08:19)
[2020-09-25 08:31] VITALS: RESP 16
[2020-09-25] MEDS ORDERED: PROPOFOL 10 MG/ML 20 ML VIAL IV ONE (09:17)
[2020-09-25] MEDS ORDERED: LIDOCAINE 1% INJ 10MG/ML (20 ML MDV) ONE (09:17)
[2020-09-25] MEDS ORDERED: DEXAMETHASONE SOD PHOSPHATE 10 MG/ML 1 ML VIAL ONE (09:17)
[2020-09-25] MEDS ORDERED: fentaNYL (PF) 50 MCG/ML 2 ML AMP ONE (09:17)
[2020-09-25] MEDS ORDERED: SODIUM CHLORIDE 0.9% 1,000 ML IV ONE (09:17)
[2020-09-25] MEDS ORDERED: MIDAZOLAM 2 MG/2 ML VIAL ONE (09:17)
[2020-09-25] MEDS ORDERED: SUCCINYLCHOLINE CHLORIDE 100 MG/5 ML SYR IV ONE (09:17)
[2020-09-25] MEDS ORDERED: ONDANSETRON 4 MG/2 ML VIAL ONE (09:17)
[2020-09-25] MEDS ORDERED: IOPAMIDOL-370 50ML BTL MISCELLANE ONE (09:34)
[2020-09-25] MEDS ORDERED: LACTATED RINGERS 1,000 ML IV ONE (09:38)
--- NOTE | 2020-09-25 09:45 | P.OP ---
Date of Procedure: 09/25/20 Preoperative Diagnosis: Left ureteral stone Postoperative Diagnosis: Same Procedure(s) Performed: Cystoscopy, left retrograde pyelogram and stent placement Implants: 6-Montserratian X 26 cm stent Anesthesia: SHIN Surgeon: Jd Banks Estimated Blood Loss (ml): 0 Pathology: none sent Condition: stable Disposition: PACU Indications for Procedure: Ms. Lundberg is 35-year-old female that presented to the ED with a 6 mm x 15 mm left ureteral stone. Additionally she had a UTI. She was symptomatic from her stone. I discussed with her given her symptoms and the left-sided stone, I recommend we proceed with a stent placement. Discussed the risk which includes but not limited to bleeding, infection, injury to the ureter. I also discussed that this is not a definitive treatment for the stone and she will need to have ureteroscopy in the future to address her stone. Discussed the risk of retained stent with her. She understood all risks and agree to proceed with a left stent placement Description of Procedure: Patient was brought to the operating room, general anesthesia was induced she which was prepped and draped in sterile fashion and placed in a dorsal lithotomy position. Cystoscopy fitted with a 22-Montserratian sheath was inserted per urethra, cystoscopy was performed showed no abnormality within the bladder. Attention was then carried to the left ureteral orifice which was intubated with a 6- Montserratian open-ended catheter, retrograde pyelogram was performed which showed a filling defect along the course of the proximal ureter with minimal contrast seen past the stone. A sensor wire was advanced through the catheter into the renal pelvis, the catheter was removed the wire in place. Next a 6-Montserratian by 26 cm stent was passed over the wire. The proximal curl was visualized on fluoroscopy and the distal curl was visualized using the cystoscope. There was return of cloudy urine from the collecting system. The bladder was emptied at the end of the case. The patient tolerated the procedure well and was taken to PACU in stable condition
--- NOTE | 2020-09-25 09:59 | FL ---
EXAMINATION TYPE: FL urography retrograde DATE OF EXAM: 09/25/2020 FLUOROSCOPY Fluoroscopy time of 9 seconds was used during stent placement. 1 image/s document/s the procedure.
[2020-09-25 10:03] VITALS: TEMP 97.1
[2020-09-25 10:30] VITALS: BP 121/60; PULSE 88
--- NOTE | 2020-09-25 23:42 | P.DS ---
Providers Date of admission: 09/23/20 20:17 Attending physician: Jd Banks MD Primary care physician: [facility] Course: 35 yo female that presented to the ED with a flank pain secondary to 1.5 cm left sided ureteral stone. She is she also had a UTI presentation. She was admitted to the hospital started on IV antibiotics. On 09/25 the patient was taken to the OR for left stent placement, please see op note dated 09/25 for surgery deta il. She was discharged home following stent placement. She will follow up in 1 week, and will subsequently be scheduled for left-sided ureteroscopy to address her stone. At time of discharge she was tolerating a diet, pain was controlled, she was ambulating Patient Condition at Discharge: Stable Plan - Discharge Summary New Discharge Prescriptions: New Tamsulosin [Flomax] 0.4 mg PO DAILY #10 cap Cephalexin [Keflex] 500 mg PO Q8HR #15 cap Ketorolac [Toradol] 10 mg PO Q6HR PRN #15 tab PRN Reason: Pain No Action DULoxetine HCL [Cymbalta] 60 mg PO HS Pantoprazole Sodium [Protonix] 40 mg PO HS Discharge Medication List DULoxetine HCL [Cymbalta] 60 mg PO HS 08/19/20 [History] Pantoprazole Sodium [Protonix] 40 mg PO HS 09/23/20 [History] Cephalexin [Keflex] 500 mg PO Q8HR #15 cap 09/25/20 [Rx] Ketorolac [Toradol] 10 mg PO Q6HR PRN #15 tab 09/25/20 [Rx] Tamsulosin [Flomax] 0.4 mg PO DAILY #10 cap 09/25/20 [Rx] Follow up Appointment(s)/Referral(s): Fortunato Gonzalez MD [Primary Care Provider] - 1-2 days Jd Banks MD [STAFF PHYSICIAN] - 1 Week Activity/Diet/Wound Care/Special Instructions: You may see some blood in the urine Increase her fluid intake
== END 2020-09-25 13:05 | disposition home or self-care (01) | DRG 661 ==
LOC: EC 17:53 → 4SSUR 20:17
PROVIDERS: ADMIT Urology; ATTEND Urology
PROC: 0T778DZ Dilation of Left Ureter with Intraluminal Device, Via Natural or Artificial Opening Endoscopic (ICD-10-PCS; principal; 2020-09-25 09:00)
DX: N13.6 Pyonephrosis (principal); F17.200 Nicotine dependence, unspecified, uncomplicated; J45.909 Unspecified asthma, uncomplicated; M41.9 Scoliosis, unspecified; F41.9 Anxiety disorder, unspecified; F32.9 Major depressive disorder, single episode, unspecified; Z98.891 History of uterine scar from previous surgery; Z98.51 Tubal ligation status
CPT/HCPCS: 36415; 74176; 74420; 80053; 81001; 81025; 85025; 87077; 87086; 87186; 96361; 96374; 96375; 99284

== ENCOUNTER → 2020-10-29 | Outpatient (CLI) | payer OTHER ==
[2020-10-29 10:37] LABS: Basophils # (A) 0.1 k/uL (0-0.2); Basophils % (A) 1 %; Eosinophils # (A) 0.3 k/uL (0-0.7); Eosinophils % (A) 5 %; HCT 41.1 % (34.0-46.0); HGB 13.4 gm/dL (11.4-16.0); Lymphocytes # (A) 1.6 k/uL (1.0-4.8); Lymphocytes % (A) 22 %; MCH 28.8 pg (25.0-35.0); MCHC 32.6 g/dL (31.0-37.0); MCV 88.3 fL (80.0-100.0); Mean Platelet Volume 6.8; Monocytes # (A) 0.3 k/uL (0-1.0); Monocytes % (A) 4 %; Neutrophils # (A) 4.8 k/uL (1.3-7.7); Neutrophils % (A) 67 %; Platelet Count 274 k/uL (150-450); RBC 4.65 m/uL (3.80-5.40); RDW 13.6 % (11.5-15.5); WBC 7.2 k/uL (3.8-10.6)
[2020-10-29 10:50] LABS: Appearance,Urine Clear (Clear); Bacteria,Urine Rare /hpf; Bilirubin,Urine Negative (Negative); Blood,Urine Negative (Negative); Color,Urine Yellow; Glucose,Urine (UA) Negative (Negative); Ketones,Urine Negative (Negative); Leukocyte Esterase,Urine Large (Negative); Mucus,Urine Rare /hpf; Nitrite,Urine Negative (Negative); PH, Urine 6.5 (5.0-8.0); Protein,Urine Trace (Negative); RBC,Urine <1 /hpf (0-5); Specific Gravity,Urine 1.008 (1.001-1.035); Urobilinogen,Urine <2.0 mg/dL (<2.0); WBC,Urine 59 /hpf (0-5)
[2020-10-29 11:07] LABS: African American GFR (CKD) >90 (>60 ml/min/1.73 sqM); Anion Gap 10 mmol/L; Blood Urea Nitrogen 7 mg/dL (7-17); Calcium 9.4 mg/dL (8.4-10.2); Carbon Dioxide 26 mmol/L (22-30); Chloride 104 mmol/L (98-107); Glucose 111 mg/dL (74-99); Non-African American GFR(CKD) >90 (>60 ml/min/1.73 sqM); Potassium 4.5 mmol/L (3.5-5.1); Sodium 140 mmol/L (137-145)
== END | disposition home or self-care (01) ==
LOC: LABPAT 09:10
PROVIDERS: ATTEND Urology
DX: Z01.818 Encounter for other preprocedural examination (principal); N20.1 Calculus of ureter
CPT/HCPCS: 36415; 80048; 81001; 85025; 87086

== ENCOUNTER 2020-11-05 10:27 | Day surgery (SDC) | payer OTHER ==
[2020-11-04 09:35] VITALS: BMI 39.1
--- NOTE | 2020-11-04 16:06 | P.HPIHPCON ---
History of Present Illness H&P Date: 11/04/20 Chief Complaint: Left ureteral stone This is a 35-year-old female with history of a 1.5 cm left ureteral stone. She is status post left stent placement on September 25. Option of ESWL, and ureteroscopy was discussed with her. She agreed to proceed with left-sided ureteroscopy. Discussed with her the risk which includes but not limited to bleeding, infection, injury to the ureter. Discussed with the risk of anesthesia with her. She understood all the risk and agreed to proceed left- sided ureteroscopy with holmium laser lithotripsy, stone basketing and possible stent exchange Consent for Procedure: I have explained the operation/procedure to the patient, including the risks, benefits, side effects, alternative therapies (including not receiving the proposed treatment or service), the likelihood of the patient achieving his/her goals, and potential recuperation problems for the procedure/sedation/analgesia, as well as any blood products, if indicated. I also explained to the patient the risks, benefits and side effects of the alternatives, as well as the risks related to not receiving the proposed procedure, care, treatment, or services. Past Medical History Past Medical History: Asthma, Musculoskeletal Disorder Additional Past Medical History / Comment(s): Scoliosis. kidney stones,. uti- currently on antibiotics History of Any Multi-Drug Resistant Organisms: None Reported Past Surgical History: Section, Tubal Ligation Additional Past Surgical History / Comment(s): Oral surg., C/S x3, endometrial ablation Past Anesthesia/Blood Transfusion Reactions: No Reported Reaction Smoking Status: Current every day smoker - Past Family History Mother Family Medical History: No Reported History Medications and Allergies Home Medications Medication Instructions Recorded Confirmed Type DULoxetine HCL [Cymbalta] 60 mg PO HS 08/19/20 11/04/20 History Pantoprazole Sodium [Protonix] 40 mg PO HS 09/23/20 11/04/20 History Cephalexin [Keflex] 500 mg PO Q8HR #15 cap 09/25/20 11/04/20 Rx Tamsulosin [Flomax] 0.4 mg PO DAILY #10 cap 09/25/20 11/04/20 Rx Allergies Allergy/AdvReac Type Severity Reaction Status Date / Time No Known Allergies Allergy Verified 11/04/20 09:10 Surgical - Exam - General well developed, well nourished, no distress, no pain - Eyes PERRL, normal ocular movement - ENT normal nares, normal mucosa - Respiratory normal expansion, normal respiratory effort - Abdomen Abdomen: soft, non tender - Psychiatric oriented to time, oriented to person, oriented to place Assessment and Plan Assessment: 35-year-old female with history of left-sided ureteral stone -Or for left-sided ureteroscopy, holmium laser lithotripsy, stone basketing, possible stent exchange
[~2020-11-05 10:27] MED LIST changes: -LIDOCAINE 1% (10MG/ML) FOR IV START INTRADERMA PRN; -Pre Op ABX Message 1 EACH MISC MISCELLANE ONE; +SCOPOLAMINE 1.5MG/72HR PATCH TRANSDERM ONE; +ceFAZolin 3 GM in SODIUM CHLORIDE 0.9% 100 ML IVPB PRN
--- NOTE | 2020-11-05 11:07 | XR ---
KUB HISTORY: Kidney stones, left ureteral calculus Frontal KUB and [address] scan 09/23/2020 There is a double-J stent present on the left. Proximal left ureteral calculus is noted correlating w ith the CT findings and measuring approximately 2.2 cm in greatest transverse dimension. There is a s romel curvature. Fallopian tubal ligation clips are present in the pelvis. Some scattered phleboliths are present within the pelvis. IMPRESSION: Left nephrolithiasis or proximal ureteral lithiasis. Double-J stent in place. Postprocedu ral changes.
[2020-11-05] MEDS ORDERED: SUCCINYLCHOLINE CHLORIDE 100 MG/5 ML SYR IV ONE (11:46)
[2020-11-05] MEDS ORDERED: fentaNYL (PF) 50 MCG/ML 2 ML AMP ONE (11:46)
[2020-11-05] MEDS ORDERED: ROCURONIUM 10 MG/ML (10 ML VIAL) IV ONE (11:46)
[2020-11-05] MEDS ORDERED: PROPOFOL 10 MG/ML 20 ML VIAL IV ONE (11:46)
[2020-11-05] MEDS ORDERED: MIDAZOLAM 2 MG/2 ML VIAL ONE (11:46)
[2020-11-05] MEDS ORDERED: LIDOCAINE 1% INJ 10MG/ML (20 ML MDV) ONE (11:46)
[2020-11-05] MEDS ORDERED: IOPAMIDOL-370 50ML BTL MISCELLANE ONE ×2 (12:17)
[2020-11-05 12:59] VITALS: TEMP 96.9
--- NOTE | 2020-11-05 13:12 | P.OP ---
Date of Procedure: 11/05/20 Preoperative Diagnosis: Left ureteral stone Postoperative Diagnosis: Same Procedure(s) Performed: Cystoscopy, left retrograde pyelogram, ureteroscopy, holmium laser lithotripsy, stone basketing and stent exchange Implants: 6-Somali by 24 cm stent Anesthesia: RANDOLPHA Surgeon: Jd Banks Estimated Blood Loss (ml): 1 Pathology: other (left ureteral stone) Condition: stable Disposition: PACU Indications for Procedure: This is a 35-year-old female with history of a 1.5 cm left ureteral stone. She is status post left stent placement on September 25. Option of ESWL, and ureteroscopy was discussed with her. She agreed to proceed with left-sided ureteroscopy. Discussed with her the risk which includes but not limited to bleeding, infection, injury to the ureter. Discussed with the risk of anesthesia with her. She understood all the risk and agreed to proceed left- sided ureteroscopy with holmium laser lithotripsy, stone basketing and possible stent exchange Operative Findings: Large stone in the proximal ureter that migrated to upper pole Description of Procedure: Patient was brought to the operating room, general anesthesia was induced She was prepped and draped in sterile fashion a placemed in dorsal lithotomy position. Cystoscopy fitted with a 21-Somali sheath was inserted per urethra, cystoscopy was performed showed no abnormality within the bladder. The stent was grasped using the stent grasper and removed to the meatus. Next a sensor wire was advanced through the stent, and the stent was removed with the wire in place. Next a 6-Somali open-ended ureteral catheter was passed over the wire. Retrograde Polygram was performed which showed a filling defect at the UPJ, with no additional filling defect along the course of the ureter. Next a semirigid ureteroscope was inserted and advanced up to the proximal ureter. At this time the appeared that the stone has migrated into the kidney. At this time a sensor wire was advanced through the scope and the scope was withdrawn with the wire in place. Next a 1214 Somali access sheath was passed over the wire under fluoroscopy into the proximal ureter. The scope was advanced through the access sheath, renoscopy was performed which showed a large stone within the upper pole. Using the holmium laser the stone was fragmented into small fragments, the fragments were removed using the stone basket. The stone appeared to be of struvite consistency, thus maximal basketing was performed. Repeat ureteroscopy demonstrated no sizable fragments. Repeat renoscopy demonstrated no injury to the kidney. Pullback ureteroscopy demonstrated no injury to the ureter or any ureteral fragments. Next a sensor wire was advanced through the scope as it was withdrawn. Next a ureteral stent was passed over the wire, the proximal curl was visualized on fluoroscopy and distal curl was visualized in the cystoscope. The bladder was emptied and the case. The right side of the procedure well was taken to PACU in stable condition
[2020-11-05] MEDS ORDERED: LACTATED RINGERS 1,000 ML IV ONE (13:26)
[2020-11-05 13:31] VITALS: RESP 16
[2020-11-05 13:51] VITALS: BP 168/81; PULSE 64
--- NOTE | 2020-11-08 14:46 | FL ---
EXAMINATION TYPE: FL urography retrograde DATE OF EXAM: 11/05/2020 FLUOROSCOPY Fluoroscopy time of 11 seconds was used during left-sided lithotripsy and stent insertion. 2 image/s document/s the procedure.
== END 2020-11-05 14:02 | disposition home or self-care (01) ==
LOC: OR 10:27
PROVIDERS: ATTEND Urology
DX: N20.0 Calculus of kidney (principal); M41.9 Scoliosis, unspecified; J45.909 Unspecified asthma, uncomplicated; K21.9 Gastro-esophageal reflux disease without esophagitis; F17.200 Nicotine dependence, unspecified, uncomplicated; Z79.899 Other long term (current) drug therapy; Z87.442 Personal history of urinary calculi; Z98.51 Tubal ligation status; Z98.891 History of uterine scar from previous surgery
CPT/HCPCS: 81025; 82365; 74420; 74018; 52356; C2625; C1894; C1758; C1769; J2250; J1100; J0690; J2405; J2001; J3010; J0330; J2704; Q9967

== ENCOUNTER → 2020-12-30 | Outpatient (CLI) | payer OTHER ==
--- NOTE | 2020-12-31 10:20 | US ---
EXAMINATION TYPE: US kidneys/renal and bladder DATE OF EXAM: 12/30/2020 COMPARISON: Radiographs 11/05/2020 CLINICAL HISTORY: 35-year-old female N13.30 Unspecified hydronephrosis. Follow-up from renal stone in left kidney with stenting. No pain at this time. TECHNIQUE: Multiple sonographic images of the kidneys and bladder are obtained. FINDINGS: EXAM MEASUREMENTS: Right Kidney: 13.0 x 6.9 x 4.9 cm Left Kidney: 11.6 x 6.3 x 5.0 cm No hydronephrosis on either side. Bladder: distended, anechoic Bilateral Jets seen IMPRESSION: No hydronephrosis. The patient's left ureteral stent is not clearly visualized.
== END | disposition home or self-care (01) ==
LOC: RADUSWWP 16:08
PROVIDERS: ATTEND Urology
DX: N13.2 Hydronephrosis with renal and ureteral calculous obstruction (principal)
CPT/HCPCS: 76770

== ENCOUNTER 2022-08-09 01:18 | Emergency (ER) | payer OTHER ==
[2022-08-09 01:26] VITALS: BP 163/89; PULSE 90; RESP 16; TEMP 97.9
[2022-08-09] MEDS ORDERED: HYDROcodone/APAP 5-325MG 1 EACH TAB PO STA (01:30)
[2022-08-09] MEDS ORDERED: ACET/COD 300 MG/30 MG STARTER PACK 6 TAB BTL PO STA (01:31)
[2022-08-09] MEDS ORDERED: AMOXIC-POT CLAV 875-125MG 1 EACH TAB PO STA (01:31)
--- NOTE | 2022-08-09 01:40 | ED ---
ENT HPI - General Chief complaint: Dental/Oral Stated complaint: Dental Pain Time Seen by Provider: 08/09/22 01:26 Source: patient, RN notes reviewed Mode of arrival: ambulatory - History of Present Illness Initial comments: This is a pleasant 37-year-old female who comes the ER complaining of right upper dental pain which is going on for quite some time. Patient states she was on Augmentin for a dental abscess and in fact, had plain the last Sunday which had to be rescheduled by the dentist. Patient ran out of her antibiotics now the area is worsening again. Patient has an appointment on Sunday with the Manjinder. No headache, no fever or chills, no changes in vision or hearing, no sore throat or difficulty with speech, no neck pain, no chest pain or shortness of breath, no abdominal pain, no nausea or vomiting, no changes in urination or bowel movements, no numbness or tingling, no extremity pain, no skin rashes or lesions. Past medical, surgical, social, and family history reviewed. MD complaint: tooth pain - Related Data Home Medications Medication Instructions Recorded Confirmed DULoxetine HCL [Cymbalta] 60 mg PO HS 08/19/20 11/04/20 Pantoprazole Sodium [Protonix] 40 mg PO HS 09/23/20 11/04/20 Previous Rx's Medication Instructions Recorded Cephalexin [Keflex] 500 mg PO Q8HR #15 cap 09/25/20 Tamsulosin [Flomax] 0.4 mg PO DAILY #10 cap 09/25/20 Ibuprofen 600 mg PO Q6H PRN #30 tab 11/05/20 Amoxic-Pot Clav 875-125Mg 1 tab PO Q12HR 1 Days #14 tab 08/09/22 [Augmentin 875-125] Allergies Allergy/AdvReac Type Severity Reaction Status Date / Time No Known Allergies Allergy Verified 11/05/20 10:56 Review of Systems ROS Statement: Those systems with pertinent positive or pertinent negative responses have been documented in the HPI. ROS Other: All systems not noted in ROS Statement are negative. Past Medical History Past Medical History: Asthma, Musculoskeletal Disorder Additional Past Medical History / Comment(s): Scoliosis History of Any Multi-Drug Resistant Organisms: None Reported Past Surgical History: Section, Tubal Ligation Additional Past Surgical History / Comment(s): Oral surg., C/S x3, endometrial ablation Past Anesthesia/Blood Transfusion Reactions: No Reported Reaction Past Psychological History: Anxiety, Depression Smoking Status: Current every day smoker - Past Family History Mother Family Medical History: No Reported History General Exam - General Exam Comments Initial Comments: Patient does not appear to be ill or toxic. Vital signs noted. Patient a bit hypertensive. Limitations: no limitations General appearance: alert, in no apparent distress Head exam: Present: atraumatic, normocephalic, normal inspection Eye exam: Present: normal appearance, EOMI ENT exam: Present: mucous membranes moist, TM's normal bilaterally, normal external ear exam. Absent: normal exam, mucous membranes dry Expanded Ear exam: Present: normal external inspection Mouth exam: Present: normal external inspection. Absent: drooling, trismus, muffled voice, tongue normal, tongue elevation, laceration Teeth exam: Present: dental caries, dental tenderness # (Adjacent to tooth #6 and 7), gingival enlargement, other (Evidence of adjacent enlargement consistent with a mild abscess.) Throat exam: normal inspection. negative: tonsillar erythema, tonsillomegaly, tonsillar exudate, R peritonsillar mass, L peritonsillar mass Neck exam: Present: normal inspection. Absent: tenderness, meningismus, lymphadenopathy Respiratory exam: Present: normal lung sounds bilaterally. Absent: respiratory distress, wheezes, rales, rhonchi, stridor Cardiovascular Exam: Present: regular rate, normal rhythm, normal heart sounds. Absent: systolic murmur, diastolic murmur, rubs, gallop, clicks GI/Abdominal exam: Present: soft. Absent: tenderness Extremities exam: Present: normal inspection Back exam: Present: normal inspection Neurological exam: Present: alert, oriented X3, CN II-XII intact Psychiatric exam: Present: normal affect, normal mood Course Vital Signs 08/09/22 01:21 Temperature 97.9 F Pulse Rate 90 Respiratory 16 Rate Blood Pressure 163/89 O2 Sat by Pulse 98 Oximetry Medical Decision Making - Medical Decision Making Patient has evidence of a mild dental abscess. I'm going to restart the patient on antibiotics and have her follow-up with the dentist on Sunday as planned. Discussed elevation of blood pressure. Patient did not appear to be ill or toxic. [place] given here. Acetaminophen/codeine starter pack given. Patient was told to return to the ER for any signs or symptoms worsen. Told to return immediately if any other problems arise. All questions answered. Treatment plan discussed. Patient in agreement Every effort has been made to ensure accuracy of this dictation. However, due to the limitations of electronic medical records and dictation devices, errors in charting still occur. Tail Edger Dr. Zarate Disposition Clinical Impression: Abscess, dental, Elevated blood pressure reading Disposition: HOME SELF-CARE Condition: Stable Instructions (If sedation given, give patient instructions): Dental Abscess (ED) Additional Instructions: follow-up with the dentist on Sunday as planned. Take antibiotics as directed. You can use the acetaminophen/codeine every 4-6 hours as needed for pain. Do not take that with regular Tylenol as he both have Tylenol in the medication. Do not operate machinery or drive vehicles while taking the codeine. Your blood pressure was elevated today. Make sure he follow-up with your regular doctor to keep an eye on blood pressure to make sure this was only a transient event. Is patient prescribed a controlled substance at d/c from ED?: No Referrals: Fortunato Gonzalez MD [Primary Care Provider] - 1-2 days Time of Disposition: 01:33
== END 2022-08-09 01:47 | disposition home or self-care (01) ==
LOC: EC 01:18
DX: K04.7 Periapical abscess without sinus (principal); R03.0 Elevated blood-pressure reading, without diagnosis of hypertension; J45.909 Unspecified asthma, uncomplicated; F32.A Depression, unspecified; F41.9 Anxiety disorder, unspecified; F17.200 Nicotine dependence, unspecified, uncomplicated; Z79.899 Other long term (current) drug therapy
CPT/HCPCS: 99282

== ENCOUNTER → 2022-09-18 | Outpatient (CLI) | payer OTHER ==
--- NOTE | 2022-09-18 21:43 | MR ---
EXAMINATION TYPE: MR lumbar spine wo con DATE OF EXAM: 09/18/2022 8:22 AM COMPARISON: None. CLINICAL INDICATION:Female, 37 years old with history of M54.50 LOW BACK PAIN, UNSP; TECHNIQUE: Multi planar, multi sequence imaging was performed utilizing: T1-weighted, T2-weighted, a nd turbo inversion recovery imaging of the lumbar spine. IV Contrast: None. FINDINGS: Alignment: The lumbar vertebral bodies have preserved heights and alignment. Cord: The conus medullaris and the distal spinal cord appear unremarkable with regards to their signa l intensity and morphology. Bones/Discs: Scattered Modic indicate changes most pronounced at the anterior superior endplate of L2 L4 and L5. Scattered mild osteophyte formation noted at L1-L2. Disc desiccation L5-S1. L1-L2: Eccentric right disc bulge without evidence for spinal canal stenosis or neural foraminal sten osis. L2-L3: No evidence of significant spinal canal stenosis or neural foraminal stenosis. L3-L4: No evidence of significant spinal canal stenosis or neural foraminal stenosis. L4-L5: No evidence of significant spinal canal stenosis or neural foraminal stenosis. L5-S1: No evidence of significant spinal canal stenosis or neural foraminal stenosis. IMPRESSION: 1. No definitive evidence of disc herniation or significant spinal canal stenosis. 2. Mild disc degeneration with associated osteoarthritic changes.
== END | disposition home or self-care (01) ==
LOC: RADMRIMAIN 07:27
PROVIDERS: ATTEND Orthopaedic Surgery
DX: M51.36 Other intervertebral disc degeneration, lumbar region (principal); M47.816 Spondylosis without myelopathy or radiculopathy, lumbar region
CPT/HCPCS: 72148

== ENCOUNTER → 2023-01-02 | Day surgery (SDC) | payer OTHER ==
[2023-01-01 08:25] VITALS: BMI 35.6
[~2023-01-02] MED LIST changes: -DEXAMETHASONE SOD PHOSPHATE 4 MG/ML 1 ML VIAL IV ONE; -HYDROmorphone 0.5 MG/0.5 ML SYRINGE IVP PRN; +IOPAMIDOL M200 10 ML VIAL ONE; +LACTATED RINGERS 1,000 ML IV ONE; +LIDOCAINE 1% (10MG/ML) FOR IV START INTRADERMA PRN; -MIDAZOLAM 2 MG/2 ML VIAL IV PRN; +MIDAZOLAM 2 MG/2 ML VIAL ONE; -ONDANSETRON 4 MG/2 ML VIAL IVP ONE; -SCOPOLAMINE 1.5MG/72HR PATCH TRANSDERM ONE; -ceFAZolin 3 GM in SODIUM CHLORIDE 0.9% 100 ML IVPB PRN; +fentaNYL (PF) 50 MCG/ML 2 ML AMP ONE; +methylPREDNISolone ACETATE 80 MG/ML 1 ML VIAL ONE
[2023-01-02 10:28] VITALS: TEMP 96
[2023-01-02 10:41] LABS: Glucose,Whole Blood 118 mg/dL (70-110)
--- NOTE | 2023-01-02 11:01 | P.PCN ---
Date of Procedure: 01/02/23 Procedure(s) Performed: PREOPERATIVE DIAGNOSIS: 1- Lumbar Degenerative Disc Diseases. 2-lumbar radiculopathy POSTOPERATIVE DIAGNOSIS: 1-lumbar degenerative disc disease. 2-lumbar radiculopathy. PROCEDURE 1. Lumbar epidural steroid injection under fluoroscopic guidance at the L5-S1 level. (Fluoroscopy imaging was available in radiology department) 2. Lumbar epidurogram. ANESTHESIA: moderate sedation with intravenous Versed 2 mg ,and fentanyle 100 Mcg Sedation start time : 1053 Sedation end time : 1058 EBL: Minimal PROCEDURE INDICATION: The patient with low back pain and radiculitis symptoms unresponsive to conservative treatment. Fluoroscopy was used to optimize visualization of the needle placement and to maximize safety. PROCEDURE DESCRIPTION / TECHNIQUE: The patient was seen and identified in the preoperative area. Risks, benefits, complications including but not limited to infections ,bleeding ,allergic reaction to the medications ,nerve damage and not complete pain releife , and alternatives were discussed with the patient. The patient agreed to proceed with the procedure and signed the consent. IV was started, and vital signs were stable. Patient was taken to the OR and time out was completed. The patient was placed in the prone position on procedure table and a pillow was placed under the abdomen to reduce lumbar lordosis. The lumbosacral area was prepped and draped in the usual sterile fashion.ere closely monitored during the procedure. Conscious sedation was used during the procedure to decrease patients anxiety. Vital signs was monitered during the entire procedure. Using anterior-posterior fluoroscopy, the L5-S1 interlaminar space was identified and the skin over this site was marked and then infiltrated with 1% lidocaine subcutaneously. Subsequently, a 20-gauge Tuohy epidural needle was inserted and advanced toward the epidural space using the ``Loss of resistance technique and guided by AP and lateral fluoroscopy. The correct needle position in the epidural space was verified with the injection of 2 mL of the water soluble contrast dye Isovue 200 contrast and observing an excellent epidurogram with the epidural spread of the dye, after negative aspiration for blood and CSF and in the absence of paresthesias. Again after negative aspiration, a 6 ml mixture containing 80 mg of Depo-medrol ( Preservetive Free ), and 2 ml of preservative free Normal Saline, and 2 ml of preservative free lidocaine 1% solution was injected and a washout of epidurogram was seen. Needle was withdrawn intact, skin was cleansed, and bandages were applied. COMPLICATIONS: None DISPOSITION / PLANS: The patient was placed in a supine position and transferred to the recovery area in a stable condition for observation. There was no evidence of lower extremity motor or sensory deficit after the procedure. Patient was discharged from the recovery room after meeting discharge criteria. Home discharge instructions were given to the patient by the staff. The patient was reexamined prior to discharge. The patient will schedule a follow up in the clinic in 2-4 weeks.
[2023-01-02 11:12] VITALS: RESP 18
--- NOTE | 2023-01-02 11:41 | FL ---
Intraoperative/procedural fluoroscopic services were provided. Total fluoroscopy time is 1 seconds wi th a total of 1 submitted images to PACS. Please see the operative/procedural note for further detail s. DAP: [id number]
[2023-01-02 11:43] VITALS: BP 128/63; PULSE 71
== END ==
LOC: ORPAIN 09:55
PROVIDERS: ATTEND Specialist
DX: M51.16 Intervertebral disc disorders with radiculopathy, lumbar region (principal); Z88.0 Allergy status to penicillin
CPT/HCPCS: 81025; 62323; J2250; J1040; J3010; Q9966

== ENCOUNTER → 2023-01-25 | Outpatient (CLI) | payer OTHER ==
[2023-01-25 11:49] VITALS: BP 125/86; PULSE 67; RESP 18
--- NOTE | 2023-01-25 13:51 | P.PAINPG ---
PQRS Measure Charge Sheet Comment: A 38 yr old male with a history of severe and chronic LBP secondary to lumbar DDD and spondylosis with facet arthropathy without myelopathy presents today for evaluation s/p JESUS L5-S1. Pt states she experienced 100 % pain relief x 1 wks s/p procedure. Pain level is provoked at 8/10 in intensity, constant, localized in the lumbar spine, sharp in character w shooting towards the L hip. Pain is provoked by weight bearing activity. Pain is alleviated with medications, THC products, injections, ice, heat, PT x 6 wks in 2021, chiropractic treatments semi monthly for the past year which she is currently in, home stretching regimen, repositioning and rest. Interventional pain procedures completed include JESUS L5-S1 x1 Patient is currently on Mobic Patient denies any side effects of the medication(s), denies excessive drowsiness or sleepiness, denies suicidal ideation and reports that the current pain medication is helping to control the pain and improve activities of daily living. Patient denies any motor or sensory deficits. Patient denies any fever or night sweats, denies any change in the bowel movements or urination. Physical Examination: -Constitutional: Cooperative. Not in acute distress . - Neurologic: Cranial nerve II to XII intact. No focal neurological deficits. - Psychatric: Alert & oriented x 3. Matching mood & appropriate affect. Judgment and insight intact. - Musculoskeletal: Cervical spine: Muscle bulk/ tone/ strength in the bilateral upper extremities normal Vertebral body tenderness to palpation over Spurling test positive Distraction test positive Facet loading test positive TTP Thoracic spine Muscle bulk / tone/ strength in the bilateral paraspinal muscles normal Vertebral body tender to palpation over Facet loading test positive TTP Lumbar spine: Motor bulk/ tone/ strength lower extremities , thigh and legs : 5/5 Deep tendon reflexes : Normal Knee Jerk. Normal Ankle Jerk . Vertebral body tenderness to palpation over L2 Lumbar Facet Loading Test positive Straight Leg Raise: positive at 30 degrees right side/ left side Gaenslen's Test positive Sacral spine : Severe tenderness over the Sacroiliac joint: right side / left side Range of motion: Flexion of the lumbar spine <60 degrees Range of motion: Extension of the lumbar spine <20 degrees Gaenslen's Test positive right side / left side Charlotte test: positive right side / left side Thigh Thrust Test positive right side / left side Sacral Thrust Test positive right side / left side Assessment and plan: Chronic LBP secondary to lumbar DDD, spondylosis with facet arthropathy without myelopathy Recommendation of L TFESI L1-L2 #1. May need a series of injections for optimal pain relief. Risks, benefits of procedure discussed and pt verbalized understanding. Admits to anticoagulant use or medical history of diabetes. Protocol for discontinuation/ continuation of medications rocio procedure discussed. All questions answered. I have spent less than 30 minutes on patient care today. Dr Ann was available by phone for the evaluation of this patient. The time was used to review the medical records including relevant urine studies and Prescription history (MAPs), review of the available imaging, evaluation and examination of the patient, coordination of care with the medical staff and if applicable referring physicians, as well as creation of the medical record PQRS Narrative: Smoking Status Current every day smoker Hx Alcohol Use (MH) Yes: OCCASIONAL Home Medications: Ambulatory Orders Pantoprazole Sodium [Protonix] 40 mg PO HS 09/23/20 Ascorbic Acid [Vitamin C] 1,000 mg PO DAILY 01/01/23 Cholecalciferol [Vitamin D3 (125 Mcg = 5000 Iu)] 205 mcg PO DAILY 01/01/23 Meloxicam [Mobic] 15 mg PO HS 01/01/23 Vilazodone HCl [Viibryd] 20 mg PO HS 01/01/23 metFORMIN HCL ER [Glucophage XR] 500 mg PO BID 01/01/23 traZODone HCL [Desyrel] 50 mg PO HS 01/01/23 Controlled Substance Measures - Controlled Substance Measures Is patient prescribed a controlled substance at discharge?: No
== END ==
LOC: PNWHC3 07:58
PROVIDERS: ATTEND Specialist
DX: M51.36 Other intervertebral disc degeneration, lumbar region (principal); M47.816 Spondylosis without myelopathy or radiculopathy, lumbar region; G89.29 Other chronic pain; F17.200 Nicotine dependence, unspecified, uncomplicated; Z88.0 Allergy status to penicillin
CPT/HCPCS: 99211

== ENCOUNTER 2023-02-22 08:54 | Day surgery (SDC) | payer OTHER ==
[~2023-02-22 08:54] MED LIST changes: -IOPAMIDOL M200 10 ML VIAL ONE; -LACTATED RINGERS 1,000 ML IV ONE; -MIDAZOLAM 2 MG/2 ML VIAL ONE; -fentaNYL (PF) 50 MCG/ML 2 ML AMP ONE; -methylPREDNISolone ACETATE 80 MG/ML 1 ML VIAL ONE
[2023-02-22 09:08] VITALS: TEMP 97.4
[2023-02-22 09:26] LABS: Glucose,Whole Blood 116 mg/dL (70-110)
[2023-02-22] MEDS ORDERED: IOPAMIDOL M200 10 ML VIAL ONE (09:35)
[2023-02-22] MEDS ORDERED: MIDAZOLAM 2 MG/2 ML VIAL ONE (09:35)
[2023-02-22] MEDS ORDERED: fentaNYL (PF) 50 MCG/ML 2 ML AMP ONE (09:35)
[2023-02-22] MEDS ORDERED: methylPREDNISolone ACETATE 40 MG/ML 1 ML VIAL ONE (09:35)
--- NOTE | 2023-02-22 09:47 | P.PCN ---
Date of Procedure: 02/22/23 Procedure(s) Performed: PREOPERATIVE DIAGNOSIS: 1-Lumbar radiculopathy . 2-lumbar degenerative disc disease. 3-lumbar spondylosis with lumbar facet arthropathy without myelopathy POSTOPERATIVE DIAGNOSIS: 1-lumbar radiculopathy. 2-lumbar degenerative disc disease. 3-lumbar spondylosis with facet arthropathy without myelopathy PROCEDURE 1. Transforaminal epidural steroid injection under fluoroscopic guidance at left L1-2 level. (Fluoroscopy images stored on file in the radiology Department ) 2. Lumbar epidurogram . ANESTHESIA: Local with 1% lidocaine 3 ml , moderate sedation with intravenous Versed 2 mg and fentanyle 100 micrograms. Sedation start time : 932 . Sedation. stop time : 943 . EBL: Minimal PROCEDURE INDICATION: The patient with low back pain and radiculopathy symptoms unresponsive to conservative treatment. PROCEDURE DESCRIPTION / TECHNIQUE: The patient was seen and identified in the preoperative area. Risks, benefits, complications, and alternatives were discussed with the patient. The patient agreed to proceed with the procedure and signed the consent. IV was started, and vital signs were stable. Patient was taken to the OR and time out was completed. The patient was placed in the prone position on procedure table and a pillow was placed under the abdomen to reduce lumbar lordosis. The lumbosacral area was prepped and draped in the usual sterile fashion. Critical pause was taken. Vital signs were closely monitored during the procedure. Conscious sedation was used during the procedure to decrease patient s anxiety. Using oblique fluoroscopy, the chin of the ``Art dog at left L1-2 level was identified, and the skin and deeper tissues just below was localized with 1% lidocaine. Subsequently, a 22-gauge 5-inch spinal needle was advanced under a tunneled view fluoroscopic guidance just underneath the chin of the ``Art dog at the left L1-2 Under lateral fluoroscopy, the needle was then advanced to the posterior border of the interforaminal space. After negative aspiration of CSF and blood and with no paresthesias, 1 mL Isovue 200 contrast dye was injected excellent epidurogram and outlining of the nerve root Subsequently, 3 mL of block solution containing 40 mg Depo-Medrol and 2 mL of 0.9% normal saline PF was injected. Needle was removed . At the end of the procedure, skin was cleansed, and bandages were applied. COMPLICATIONS:none DISPOSITION / PLANS: The patient was placed in a supine position and transferred to the recovery area in a stable condition for observation. There was no evidence of lower extremity motor or sensory deficit after the procedure. Patient was discharged from the recovery room after meeting discharge criteria. Home discharge instructions were given to the patient by the staff. The patient was reexamined prior to discharge.
[2023-02-22] MEDS ORDERED: LACTATED RINGERS 1,000 ML IV ONE (09:49)
[2023-02-22 10:11] VITALS: BP 145/78; PULSE 61; RESP 15
--- NOTE | 2023-02-22 17:55 | FL ---
EXAMINATION TYPE: FL guided pain mgmt statistic DATE OF EXAM: 02/22/2023 FLUOROSCOPY Fluoroscopy time of 10 seconds was used during transforaminal lumbar epidural injection. image/s docu ment/s the procedure. DOSE AREA PRODUCT (DAP) UGY*M,MGY*CM: 0.0681
== END 2023-02-22 10:20 | disposition home or self-care (01) ==
LOC: ORPAIN 08:54
PROVIDERS: ATTEND Specialist
DX: M51.16 Intervertebral disc disorders with radiculopathy, lumbar region (principal); M47.26 Other spondylosis with radiculopathy, lumbar region; Z88.9 Allergy status to unspecified drugs, medicaments and biological substances
CPT/HCPCS: 81025; 64483; J2250; J1030; J3010; Q9966

== ENCOUNTER → 2023-03-14 | Outpatient (CLI) | payer OTHER ==
[2023-03-14 11:55] VITALS: BP 151/95; PULSE 93; RESP 18; TEMP 97.9
--- NOTE | 2023-03-14 15:01 | P.PAINPG ---
PQRS Measure Charge Sheet Comment: A 38 yr old male with a history of severe and chronic LBP secondary to lumbar DDD and spondylosis with facet arthropathy without myelopathy presents today for evaluation s/p L TFESI L1-L2. Pt states she experienced 50 % pain relief x 1 1/2 wks s/p procedure. Pain level is provoked at 9 /10 in intensity, constant, localized in the L lumbar spine, sharp in character w shooting towards the BL ribs. Pain is provoked by lifting. Pain is alleviated with PT x 2 rounds in the last 2 yrs, chiropractic treatments semi monthly since age 14, heat, ice, medications, topical, repositioning and rest. Interventional pain procedures completed include L TFESI L1-L2, JESUS L5-S1 Patient is currently on Mobic Patient denies any side effects of the medication(s), denies excessive drowsiness or sleepiness, denies suicidal ideation and reports that the current pain medication is helping to control the pain and improve activities of daily living. Patient denies any motor or sensory deficits. Patient denies any fever or night sweats, denies any change in the bowel movements or urination. Physical Examination: -Constitutional: Cooperative. Not in acute distress . - Neurologic: Cranial nerve II to XII intact. No focal neurological deficits. - Psychatric: Alert & oriented x 3. Matching mood & appropriate affect. Ju dgment and insight intact. - Musculoskeletal: Cervical spine: Muscle bulk/ tone/ strength in the bilateral upper extremities normal Vertebral body tenderness to palpation over Spurling test positive Distraction test positive Facet loading test positive TTP Thoracic spine Muscle bulk / tone/ strength in the bilateral paraspinal muscles normal Vertebral body tender to palpation over Facet loading test positive TTP L taut bands w twitch response over L T8-L4 Lumbar spine: Motor bulk/ tone/ strength lower extremities , thigh and legs : 5/5 Deep tendon reflexes : Normal Knee Jerk. Normal Ankle Jerk . Vertebral body tenderness to palpation over Coto Test positive Lumbar Facet Loading Test positive Straight Leg Raise: positive at 30 degrees right side/ left side Gaenslen's Test positive Sacral spine : Severe tenderness over the Sacroiliac joint: right side / left side Range of motion: Flexion of the lumbar spine <60 degrees Range of motion: Extension of the lumbar spine <20 degrees Gaenslen's Test positive right side / left side Charlotte test: positive right side / left side Thigh Thrust Test positive right side / left side Sacral Thrust Test positive right side / left side Assessment and plan: Chronic LBP secondary to lumbar DDD, spondylosis with facet arthropathy without myelopathy Recommendation of L TPIs L T8-L4. May need a series of injections for optimal pain relief. Risks, benefits of procedure discussed and pt verbalized understanding. Admits to anticoagulant use or medical history of diabetes. Protocol for discontinuation/ continuation of medications rocio procedure discussed. Minimal anesthesia provided, if clinically indicated, consisting of Versed and Fentanyl. All questions answered. I have spent less than 30 minutes on patient care today. Dr Ann was a vailable by phone for the evaluation of this patient. The time was used to review the medical records including relevant urine studies and Prescription history (MAPs), review of the available imaging, evaluation and examination of the patient, coordination of care with the medical staff and if applicable referring physicians, as well as creation of the medical record PQRS Narrative: Smoking Status Current every day smoker Hx Alcohol Use (MH) Yes: OCCASIONAL Home Medications: Ambulatory Orders Pantoprazole Sodium [Protonix] 40 mg PO HS 09/23/20 Ascorbic Acid [Vitamin C] 1,000 mg PO DAILY 01/01/23 Cholecalciferol [Vitamin D3 (125 Mcg = 5000 Iu)] 205 mcg PO DAILY 01/01/23 Meloxicam [Mobic] 15 mg PO HS 01/01/23 Vilazodone HCl [Viibryd] 20 mg PO HS 01/01/23 metFORMIN HCL ER [Glucophage XR] 500 mg PO BID 01/01/23 traZODone HCL [Desyrel] 50 mg PO HS 01/01/23 Controlled Substance Measures - Controlled Substance Measures Is patient prescribed a controlled substance at discharge?: No
== END ==
LOC: PNWHC3 08:05
PROVIDERS: ATTEND Specialist
DX: M51.36 Other intervertebral disc degeneration, lumbar region (principal); M47.816 Spondylosis without myelopathy or radiculopathy, lumbar region; G89.29 Other chronic pain; F17.200 Nicotine dependence, unspecified, uncomplicated; Z88.0 Allergy status to penicillin
CPT/HCPCS: 99211

== ENCOUNTER 2023-04-24 10:26 | Day surgery (SDC) | payer OTHER ==
[~2023-04-24 10:26] MED LIST changes: -LIDOCAINE 1% (10MG/ML) FOR IV START INTRADERMA PRN
[2023-04-24 10:53] VITALS: TEMP 97.8
[2023-04-24] MEDS ORDERED: ROPIVACAINE 5 MG/ML 20 ML AMPULE ONE (10:59)
[2023-04-24] MEDS ORDERED: methylPREDNISolone ACETATE 40 MG/ML 1 ML VIAL ONE (10:59)
--- NOTE | 2023-04-24 11:07 | P.PCN ---
Date of Procedure: 04/24/23 Procedure(s) Performed: Procedure= trigger point injections lumbar paraspinal muscles bilaterally , 5 on the left side from T8 to L4 Preoperative diagnosis= 1-myofascial pain syndrome thoracic and lumbar paraspinal muscles 2-lumbar degenerative disc disease 3-lumbar facet arthropathy Postoperative diagnosis=Same as preop Diagnosis . Complication = none Condition= stable Anesthesia= none. Indication for the procedure= patient complaining of low back pain , examination was positive for multiple trigger point in the lumbar paraspinal muscles bilaterally and patient diagnosed with myofascial pain syndrome and is here to have trigger point injections Description of the procedure= procedure risk and benefits discussed with the patient, including but not limited, risk of infection and bleeding, and ALLERGIC reaction to the medication and not complete pain relief and patient agreed with the preceding patient taken to the operating room, placed in sitting position or standard monitors applied to the patient then after induction of anesthesia back prepped with chlorhexidine 3 times , then under sterile technique each of the trigger point that was marked in the preop holding area 5 on the left side lumbar paraspinal muscles and 4 on the left side , each one of them injected with the 2 mL of the mixture of ropivacaine 0.5% 10 ML mixed with 40 mg of Depo- Medrol and 2 mL of the mixture injected at each trigger point after negative aspiration, using 25-gauge needle, injection done after negative aspiration under was no paresthesia during the injection patient tolerated the procedure well without any complications and he will follow up in the pain clinic in a few weeks
[2023-04-24 11:10] VITALS: BP 155/78; PULSE 80; RESP 18
== END 2023-04-24 11:24 | disposition home or self-care (01) ==
LOC: ORPAIN 10:26
PROVIDERS: ATTEND Specialist
DX: M79.18 Myalgia, other site (principal); Z88.0 Allergy status to penicillin; M51.36 Other intervertebral disc degeneration, lumbar region; M47.816 Spondylosis without myelopathy or radiculopathy, lumbar region
CPT/HCPCS: 81025; 20553; J1030; J2795

== ENCOUNTER → 2023-05-14 | Outpatient (CLI) | payer OTHER ==
--- NOTE | 2023-05-14 08:45 | P.PN ---
Subjective Progress Note Date: 05/14/23 A 38 yr old male with a history of severe and chronic mid and LBP secondary to lumbar DDD and spondylosis with facet arthropathy without myelopathy presents today for evaluation s/p trigger point injection thoracic and lumbar area. Pt states she experienced 30 % pain relief x 2 wks s/p procedure. Pain level is provoked at 9 /10 in intensity, constant, localized in the L lower thoracic lumbar spine, sharp in character w shooting towards the L ribs. Pain is provoked by lifting. Pain is alleviated with PT x 2 rounds in the last 2 yrs, chiropractic treatments semi monthly since age 14, heat, ice, medications, topical, repositioning and rest. Interventional pain procedures completed include L TFESI L1-L2, JESUS L5-S1, trigger point injection TA to L4 Patient is currently on Mobic Patient denies any side effects of the medication(s), denies excessive drowsiness or sleepiness, denies suicidal ideation and reports that the current pain medication is helping to control the pain and improve activities of daily living. Patient denies any motor or sensory deficits. Patient denies any fever or night sweats, denies any change in the bowel movements or urination. Physical Examination: -Constitutional: Cooperative. Not in acute distress . - Neurologic: Cranial nerve II to XII intact. No focal neurological deficits. - Psychatric: Alert & oriented x 3. Matching mood & appropriate affect. Judgment and insight intact. - Musculoskeletal: Cervical spine: Muscle bulk/ tone/ strength in the bilateral upper extremities normal Vertebral body tenderness to palpation over Spurling test positive Distraction test positive Facet loading test positive TTP Thoracic spine Muscle bulk / tone/ strength in the bilateral paraspinal muscles normal Vertebral body tender to palpation over Facet loading test positive TTP L taut bands w twitch response over L T8-L4 Lumbar spine: Motor bulk/ tone/ strength lower extremities , thigh and legs : 5/5 Deep tendon reflexes : Normal Knee Jerk. Normal Ankle Jerk . Vertebral body tenderness to palpation over Coto Test positive Lumbar Facet Loading Test positive Straight Leg Raise: positive at 30 degrees right side/ left side Gaenslen's Test positive Sacral spine : Severe tenderness over the Sacroiliac joint: right side / left side Range of motion: Flexion of the lumbar spine <60 degrees Range of motion: Extension of the lumbar spine <20 degrees Gaenslen's Test positive right side / left side Charlotte test: positive right side / left side Thigh Thrust Test positive right side / left side Sacral Thrust Test positive right side / left side Assessment and plan: Chronic LBP secondary to lumbar DDD, spondylosis with facet arthropathy without myelopathy Myofascial pain syndrome left side thoracic and lumbar area Recommendation of Voltaren gel 1% to be applied to the left-sided lower thoracic and upper lumbar twice daily Patient could benefit from Zanaflex 4 mg twice a day when necessary Patient will follow up in the pain clinic in 6-8 weeks PQRS Narrative: Smoking Status Current every day smoker Hx Alcohol Use (MH) Yes: OCCASIONAL Home Medications: Ambulatory Orders Pantoprazole Sodium [Protonix] 40 mg PO HS 09/23/20 Ascorbic Acid [Vitamin C] 1,000 mg PO DAILY 01/01/23 Cholecalciferol [Vitamin D3 (125 Mcg = 5000 Iu)] 205 mcg PO DAILY 01/01/23 Meloxicam [Mobic] 15 mg PO HS 01/01/23 Vilazodone HCl [Viibryd] 20 mg PO HS 01/01/23 metFORMIN HCL ER [Glucophage XR] 500 mg PO BID 01/01/23 traZODone HCL [Desyrel] 50 mg PO HS 01/01/23 Controlled Substance Measures - Controlled Substance Measures Is patient prescribed a controlled substance at discharge?: No Objective - Vital Signs Vital signs: Intake & Output 05/13/23 05/14/23 05/14/23 18:59 06:59 18:59 Weight 99.79 kg
[2023-05-14 09:00] VITALS: BP 159/73; PULSE 69; RESP 16; TEMP 98
== END ==
LOC: PNWHC3 08:14
PROVIDERS: ATTEND Specialist
DX: M51.36 Other intervertebral disc degeneration, lumbar region (principal); M47.816 Spondylosis without myelopathy or radiculopathy, lumbar region; G89.29 Other chronic pain; M79.18 Myalgia, other site; F17.200 Nicotine dependence, unspecified, uncomplicated; Z88.0 Allergy status to penicillin
CPT/HCPCS: 99211

== ENCOUNTER → 2023-07-09 | Outpatient (CLI) | payer OTHER ==
[2023-07-09 09:18] VITALS: BP 130/84; PULSE 74; RESP 116; TEMP 99
--- NOTE | 2023-07-09 14:36 | P.PAINPG ---
Objective - Vital Signs Vital signs: Intake & Output 07/08/23 07/09/23 07/09/23 18:59 06:59 18:59 Weight 98.43 kg PQRS Measure Charge Sheet Comment: A 38 yr old female with a history of severe and chronic mid and LBP secondary to lumbar DDD and spondylosis with facet arthropathy without myelopathy presents today for evaluation. Pain level is provoked at 8 /10 in intensity, constant, localized in the L lower thoracic lumbar spine, sharp in character w shooting towards the L ribs. Pain is provoked by lifting. Pain is alleviated with PT x 2 rounds in the last 2 yrs, chiropractic treatments semi monthly since age 14, heat, ice, medications, topical, repositioning and rest. OSWESTRY low back disability score is 34. Interventional pain procedures completed include L TFESI L1-L2, JESUS L5-S1, trigger point injection TA to L4 Patient is currently on Mobic Patient denies any side effects of the medication(s), denies excessive drowsiness or sleepiness, denies suicidal ideation and reports that the current pain medication is helping to control the pain and improve activities of daily living. Patient denies any motor or sensory deficits. Patient denies any fever or night sweats, denies any change in the bowel movements or urination. Physical Examination: -Constitutional: Cooperative. Not in acute distress . - Neurologic: Cranial nerve II to XII intact. No focal neurological deficits. - Psychatric: Alert & oriented x 3. Matching mood & appropriate affect. Judgment and insight intact. - Musculoskeletal: Cervical spine: Muscle bulk/ tone/ strength in the bilateral upper extremities normal Vertebral body tenderness to palpation over Spurling test positive Distraction test positive Facet loading test positive TTP Thoracic spine Muscle bulk / tone/ strength in the bilateral paraspinal muscles normal Vertebral body tender to palpation over Facet loading test positive TTP over L L4-L5, L5-S1 L taut bands w twitch response Lumbar spine: Motor bulk/ tone/ strength lower extremities , thigh and legs : 5/5 Deep tendon reflexes : Normal Knee Jerk. Normal Ankle Jerk . Vertebral body tenderness to palpation over Coto Test positive Lumbar Facet Loading Test positive Straight Leg Raise: positive at 30 degrees right side/ left side Gaenslen's Test positive Sacral spine : Severe tenderness over the Sacroiliac joint: right side / left side Range of motion: Flexion of the lumbar spine <60 degrees Range of motion: Extension of the lumbar spine <20 degrees Gaenslen's Test positive right side / left side Charlotte test: positive right side / left side Thigh Thrust Test positive right side / left side Sacral Thrust Test positive right side / left side Assessment and plan: Chronic LBP secondary to lumbar DDD, spondylosis with facet arthropathy without myelopathy Recommendation of L MBB L4-L5, L5-S1 #1. May need a series of injections for optimal pain relief. Risks, benefits of procedure discussed and patient verbalized understanding. Protocol for discontinuation/continuation of medications surrounded procedure discussed. PQRS Narrative: Smoking Status Current every day smoker Hx Alcohol Use (MH) Yes: OCCASIONAL Home Medications: Ambulatory Orders Pantoprazole Sodium [Protonix] 40 mg PO HS 09/23/20 Ascorbic Acid [Vitamin C] 1,000 mg PO DAILY 01/01/23 Cholecalciferol [Vitamin D3 (125 Mcg = 5000 Iu)] 205 mcg PO DAILY 01/01/23 Meloxicam [Mobic] 15 mg PO HS 01/01/23 Vilazodone HCl [Viibryd] 30 mg PO HS 01/01/23 metFORMIN HCL ER [Glucophage XR] 500 mg PO BID 01/01/23 traZODone HCL [Desyrel] 50 mg PO HS 01/01/23 Baclofen [Lioresal] 5 mg PO TID PRN 30 Days #90 tablet 05/14/23 Controlled Substance Measures - Controlled Substance Measures Is patient prescribed a controlled substance at discharge?: No
== END ==
LOC: PNWHC3 08:14
PROVIDERS: ATTEND Specialist
DX: M51.37 Other intervertebral disc degeneration, lumbosacral region (principal); M47.817 Spondylosis without myelopathy or radiculopathy, lumbosacral region; G89.29 Other chronic pain; F17.200 Nicotine dependence, unspecified, uncomplicated; Z88.0 Allergy status to penicillin
CPT/HCPCS: 99211

== ENCOUNTER 2023-08-03 09:07 | Day surgery (SDC) | payer OTHER ==
[2023-08-01 15:52] VITALS: BMI 33.9
[2023-08-03 09:48] LABS: Glucose,Whole Blood 104 mg/dL (70-110)
[2023-08-03 09:52] VITALS: TEMP 97.5
[2023-08-03] MEDS ORDERED: MIDAZOLAM 2 MG/2 ML VIAL ONE (09:56)
[2023-08-03] MEDS ORDERED: fentaNYL (PF) 50 MCG/ML 2 ML AMP ONE (09:56)
[2023-08-03] MEDS ORDERED: ROPIVACAINE 5MG/ML 20ML VIAL ONE (09:58)
[2023-08-03] MEDS ORDERED: LACTATED RINGERS 1,000 ML IV SCH (10:00)
[2023-08-03] MEDS ORDERED: LACTATED RINGERS 1,000 ML IV ONE (10:14)
--- NOTE | 2023-08-03 10:23 | P.PCN ---
Date of Procedure: 08/03/23 Description of Procedure: PREOPERATIVE DIAGNOSIS : 1- Lumbar spondylosis with Facet Arthropathy without myelopathy . 2- Lumber degenerative disc disease POSTOPERATIVE DIAGNOSIS: 1- Lumbar spondylosis with Facet Arthropathy without myelopathy . 2- Lumber degenerative disc disease PROCEDURE: Diagnostic left L4 , and L5 medial branch block under fluoroscopy guidance(fluoroscopy images available in the radiology Department ) ( To target the facet joint between Bilateral L4-5 , and L5-S1 ) ANESTHESIA:, Monitored anesthesia care as per anesthesia department. EBL: Minimal COMPLICATION: None PROCEDURE INDICATION: Chronic low back pain secondary to Facet arthropathy unresponsive to conservative treatment. PROCEDURE DESCRIPTION: the patient was seen and identified in the preop holding area , risks and benefits and possible complications of the procedure and alternative were discussed with the patient, and the patient agreed to proceed with the procedure and signed the consent and vital signs monitored d uring the procedure and fluoroscopy was used to maximize the benefit and accuracy of the needle placement, and sedation was given to decrease patient anxiety, patient was taken to the procedure room and placed in prone position vital signs monitored in the back prepped with chlorhexidine X3 then under strict sterile technique using a right oblique fluoroscopy ,the junction of the transverse process and the superior articulating process of the left L4,L5 vertebra which corresponding to the fluoroscopy image of the eye of the Art dog on the block side for the medial branches and subsequently , and at the junction of the superior articular process with left ala of the sacrum after local infiltration of skin and subcu tissuies with 1% lidocaine,then 22-gauge Quincke-type needles , 3 needle was used , each one of them placed at the junction of the base of the transverse process and the superior articular process at the appropriate level, and the needle was advanced until the perios teum contacted, needle placement confirmed with AP oblique and lateral view and after appropriate needle placement confirmed, and after negative aspiration for heme and CSF and there was no paresthesia half mL 0.5% ropivacaine injected at each level after negative aspiration the needle subsequently removed and the same procedure repeated for the left side at left side at L3 , L4 and L5 levels. At the end of the procedure and the needles removed and a bandage applied after the skin was cleaned the cleaning solution patient taken to recovery room in stable condition and monitors in the recovery room for 20-30 minutes and discharged home in stable condition after discharge criteria met and patient will follow up with the pain clinic in 2-4 weeks
[2023-08-03 10:40] VITALS: BP 143/86; PULSE 79; RESP 20
--- NOTE | 2023-08-03 16:07 | FL ---
Fluoroscopy INDICATION: Pain FINDINGS: Fluoroscopy time: 8.5 seconds. Total dose area product (DAP) in uGy*m?, mGy*cm? (or similar): 0.13735 Images obtained: 3. IMPRESSION: 1. Documentation of fluoroscopy.
== END 2023-08-03 10:47 ==
LOC: ORPAIN 09:07
PROVIDERS: ATTEND Pain Medicine Interventional Pain Medicine
DX: M51.36 Other intervertebral disc degeneration, lumbar region (principal); M47.816 Spondylosis without myelopathy or radiculopathy, lumbar region; G89.29 Other chronic pain; F17.210 Nicotine dependence, cigarettes, uncomplicated; M19.90 Unspecified osteoarthritis, unspecified site; K21.9 Gastro-esophageal reflux disease without esophagitis; E11.9 Type 2 diabetes mellitus without complications; Z79.84 Long term (current) use of oral hypoglycemic drugs; Z79.1 Long term (current) use of non-steroidal anti-inflammatories (NSAID); Z79.899 Other long term (current) drug therapy; Z98.890 Other specified postprocedural states; Z88.0 Allergy status to penicillin
CPT/HCPCS: 81025; 64493; 64494; J2250; J3010; J2795

== ENCOUNTER → 2023-10-08 | Outpatient (CLI) | payer MEDICARE, OTHER ==
[2023-10-08 08:17] VITALS: BP 112/76; PULSE 84; RESP 16; TEMP 97.7
--- NOTE | 2023-10-08 13:56 | P.PAINPG ---
PQRS Measure Charge Sheet Comment: A 38 yr old female with a history of severe and chronic mid and LBP secondary to lumbar DDD and spondylosis with facet arthropathy without myelopathy presents today for evaluation s/p L MBB L3-L5 #1. Pt states she experienced 70 % pain relief x 24 hrs s/p procedure. Pain level is provoked at 8 /10 in intensity, constant, localized in the L lower thoracic lumbar spine, predominantly axial, sharp in character w occasional shooting towards the L ribs. Pain is provoked by lifting. Pain is alleviated with PT x 2 rounds in the last 2 yrs, chiropractic treatments semi monthly since age 14, heat, ice, medications, topical, THC edibles for pain, repositioning and rest. Oswestry disability score is 34. Interventional pain procedures completed include L TFESI L1-L2, JESUS L5-S1, TPIs T8- L4, L MBB L3-L5 x1 Patient is currently on Mobic Patient denies any side effects of the medication(s), denies excessive drowsiness or sleepiness, denies suicidal ideation and reports that the current pain medication is helping to control the pain and improve activities of daily living. Patient denies any motor or sensory deficits. Patient denies any fever or night sweats, denies any change in the bowel movements or urination. Physical Examination: -Constitutional: Cooperative. Not in acute distress . - Neurologic: Cranial nerve II to XII intact. No focal neurological deficits. - Psychatric: Alert & oriented x 3. Matching mood & appropriate affect. Judgment and insight intact. - Musculoskeletal: Cervical spine: Muscle bulk/ tone/ strength in the bilateral upper extremities normal Vertebral body tenderness to palpation over Spurling test positive Distraction test positive Facet loading test positive TTP Thoracic spine Muscle bulk / tone/ strength in the bilateral paraspinal muscles normal Vertebral body tender to palpation over Facet loading test positive TTP over L L4-L5, L5-S1 L taut bands w twitch response Lumbar spine: Motor bulk/ tone/ strength lower extremities , thigh and legs : 5/5 Deep tendon reflexes : Normal Knee Jerk. Normal Ankle Jerk . Vertebral body tenderness to palpation over Coto Test positive Lumbar Facet Loading Test positive Straight Leg Raise: positive at 30 degrees right side/ left side Gaenslen's Test positive Sacral spine : Severe tenderness over the Sacroiliac joint: right side / left side Range of motion: Flexion of the lumbar spine <60 degrees Range of motion: Extension of the lumbar spine <20 degrees Gaenslen's Test positive right side / left side Charlotte test: positive right side / left side Thigh Thrust Test positive right side / left side Sacral Thrust Test positive right side / left side Assessment and plan: Chronic LBP secondary to lumbar DDD, spondylosis with facet arthropathy without myelopathy Will follow up w Dr Simon to explore additional treatment options. All questions answered. PQRS Narrative: Smoking Status Current every day smoker Hx Alcohol Use (MH) Yes: OCCASIONAL Home Medications: Ambulatory Orders Pantoprazole Sodium [Protonix] 40 mg PO HS 09/23/20 Ascorbic Acid [Vitamin C] 1,000 mg PO DAILY 01/01/23 Cholecalciferol [Vitamin D3 (125 Mcg = 5000 Iu)] 125 mcg PO DAILY 01/01/23 Meloxicam [Mobic] 15 mg PO HS 01/01/23 metFORMIN HCL ER [Glucophage XR] 500 mg PO BID 01/01/23 traZODone HCL [Desyrel] 50 mg PO HS 01/01/23 Baclofen [Lioresal] 5 mg PO TID PRN 30 Days #90 tablet 05/14/23 Cariprazine HCl [Vraylar] 3 mg PO HS 08/01/23 Controlled Substance Measures - Controlled Substance Measures Is patient prescribed a controlled substance at discharge?: No
== END ==
LOC: PNWHC3 07:38
PROVIDERS: ATTEND Specialist
DX: M47.816 Spondylosis without myelopathy or radiculopathy, lumbar region (principal); M51.36 Other intervertebral disc degeneration, lumbar region; G89.29 Other chronic pain; Z88.0 Allergy status to penicillin; F17.200 Nicotine dependence, unspecified, uncomplicated
CPT/HCPCS: 99211

== ENCOUNTER → 2024-02-05 | Outpatient (CLI) | payer MEDICARE ==
[2024-02-05 15:13] LABS: INR 0.96 sec (0.93-1.11); Prothrombin Time 10.4 sec (9.9-11.9)
[2024-02-05 15:53] LABS: HCT 44.1 % (37.2-46.3); HGB 14.1 g/dL (12.0-15.0); MCH 29.9 pg (27.0-32.0); MCV 93.4 FL (80.0-97.0); NRBC Per 100 WBC 0 X 10*3/uL (0.00-0.01); Platelet Count 245 X 10*3/uL (140-440); RBC 4.72 X 10*6/uL (4.10-5.20); RDW 13.2 % (11.5-14.5); WBC 7.81 X 10*3/uL (4.50-10.00)
[2024-02-05 16:04] LABS: ALT 13 U/L (8-44); AST 15 U/L (13-35); Albumin 4.3 g/dL (3.8-4.9); Albumin/Globulin Ratio 2.15 Ratio (1.60-3.17); Alkaline Phosphatase 98 U/L (41-126); BUN/Creat Ratio 8.29 Ratio (12.00-20.00); Blood Urea Nitrogen 5.8 mg/dL (9.0-27.0); Calcium 9.6 mg/dL (8.7-10.3); Carbon Dioxide 21.3 mmol/L (21.6-31.8); Chloride 106 mmol/L (96-109); Glucose 122 mg/dL (70-110); Potassium 4.3 mmol/L (3.5-5.5); Sodium 142 mmol/L (135-145); Total Bilirubin 0.5 mg/dL (0.3-1.2); Total Protein 6.3 g/dL (6.2-8.2)
== END | disposition home or self-care (01) ==
LOC: LABWHC1 09:04
PROVIDERS: ATTEND Orthopaedic Surgery
DX: M48.061 Spinal stenosis, lumbar region without neurogenic claudication (principal); M47.26 Other spondylosis with radiculopathy, lumbar region
CPT/HCPCS: 36415; 80053; 82306; 85027; 85610; 86850; 86900; 86901; 87070

== ENCOUNTER 2024-02-14 05:46 | Day surgery (SDC) | payer MEDICARE ==
[2024-02-08 10:44] VITALS: BMI 32.5
--- NOTE | 2024-02-13 20:36 | P.HPOR ---
History of Present Illness H&P Date: 01/23/24 .D:Date: 01/23/24 : 09:03am .T:Title: [facility] HISTORY AND PHYSICAL Age: 38 year Height: 5'8" Weight: 213 lbs BMI: 32.39 kg/m2 Occupation: Disabled VAS: 8 CC: Re-check on low back pain following recent left SI joint injection HISTORY: Ms. Lundberg returns to the office today for re-evaluation of low back pain after receiving recent left SI joint injection in office on 12/05/2023. The patient reports experiencing a continued "aching, burning" pain throughout the low back, mostly upon the left side, that radiates down into the left lower extremity. She states her left leg pain is associated with intermittent numbness and tingling. She notes her lumbar pain has been worsening over te last 2 to 3 months. The patient states her symptoms worsen after prolonged standing or walking. She reports experiencing severe sleep disturbances related to her ongoing pain and associated symptoms. The patient was being worked up by pain management and received several lumbar epidural steroid injections. She reports experiencing approximately 70% relief for 1 to 2 days following her most recent injection at pain management. She has trialed all conservative measures listed below with only mild, temporary relief. She is not currently taking any pain medications. The patient denies any f/c/sob/cp, perineal numbness or tingling, bowel or bladder incontinence/retention. Patient is ambulatoryindependently today. The patients' past social, medical, family, surgical history, as well as review of systems, have been reviewed. Please refer to the Neurosurgery History and Physical form that has been scanned into our electronic medical record system. 16 points review of systems completed and as stated in HPI, all other systems reviewed are negative. PAST TREATMENTS: PAST IMAGING: - Yes TRAUMA RELATED: - No WORK RELATED: - No PT IN LAST 6 MONTHS: - Yes; no relief PHYSICIAN DIRECTED HOME EXERCISE PROGRAM: - Yes; no relief ACTIVITY MODIFICAITON: - Yes MEDICATIONS: - None ALTERNATIVE INTERVENTIONS (CHIROPRACTIC, ACCUPUNCTURE, MASSAGE, RICE): - Yes; home heat/ice therapies and rest BRACING: - None INJECTIONS (JESUS, TF, RFA): - Left SI joint injection (completed in office on 12/05/2023 with no relief) -Facet block L5-S1 b/l. Most improvement noted from this (08/03/23) 80-100% relief for 12 hrs stated. MEDICAL HISTORY: Past Medical History: Reviewed, see appropriate section of the chart for details. Past Spine Surgical History: Yes, previous lumbar fusion Social History: Reviewed, see appropriate section of the chart for details. P3 Family History: Reviewed, see appropriate section of the chart for details. Current Medications: P1Rx: multivitamin Ref: 0 Instructions: daily Rx: pantoprazole 40 mg tablet,delayed release Ref: 0 Instructions: take 1 tablet (40 mg) by oral route 1 time per day Rx: Vitamin C Ref: 0 Instructions: daily Rx: Vitamin D , Ref: 0 Instructions: Daily Rx: traZODone Ref: 0 Instructions: 100 milligrams once daily Rx: MMJ , Ref: 0 Rx: Vraylar 1.5 mg capsule Ref: 0 Instructions: take 1 capsule (1.5 mg) by oral route once daily Rx: escitalopram 10 mg tablet Ref: 0 PHYSICAL EXAM: General: AOX3, NAD, Well hydrate, Well nourished HEENT: No lumps or masses Extremities: No color changes, no pooling INTEGUMENT: Appearance:Normal color and turgor Surgical Incisions: None Hairy Patches: ABSENT Dorsal Skin Dimples: Normal [employer] spots: ABSENT PALPATION: TTP Midline: NO Paracervical: NO Parathoracic: NO Paralumbar: YES SIJ TESTING: TTP (LEFT) [place] Finger:+ FABER4:+ Compression:- | Distraction:- Thigh thrust:- | Hip thrust: - POSTURAL BALANCE: Coronal:BALANCED Sagittal:BALANCED Shoulder height: LEVEL Pelvic Girdle: LEVEL ROM AND APPEARANCE: Neck:RESTRICTED Lumbar: RESTRICTED Shoulders: Symmetrical Hips: Symmetrical Knees: Symmetrical Hands: Symmetrical Feet: Symmetrical VASCULAR STATUS: RUE- 2 LUE-2 RLE-2 LLE-2 Edema: NONE NEUROLOGICAL EXAMINATION: Mental Status: Awake, alert, oriented fully with normal attention, concentration and memory. Fluent appropriate speech. CRANIAL NERVES: I: Olfactory not tested. II: Visual acuity normal, no visual field deficit noted with confrontation. III,IV: Normal pupillary reflexes & intact extraocular movements without nystagmus. V,: Intact symmetrical facial sensation. VII: Intact symmetrical facial motor movementVIII: Hearing intact. IX,X: Intact gag, swallow, & normal voice. XI: Sternocleidomastoid, trapezius function intact. XII: Tongue midline with normal movements. TENSIONING: L'HERMITTE'S SIGN NEG SPURLUNG'S SIGN NEG CUBITAL COMPRESSION NEG TINELS AT WRIST NEG SLR/CROSSED SLR NEG MOTOR EXAM (0-5/5, NT) Muscle appearance:Symmetrical, without signs of atrophy or dystrophy UPPER EXTREMITY RIGHT LEFT Shoulder Abduction 5 5 Biceps 5 5 Triceps 5 5 Wrist Extension 5 5 Hand Intrnsics 5 5 Substance Abuse Technician 5 5 LOWER EXTREMITY RIGHT LEFT Hip Flexion 5 5 Knee Extension 5 5 Knee Flexion 5 5 Dorsiflexion 5 5 Plantarflexion 5 5 EHL 5 5 FHL 5 5 REFLEXES (0-4/2, NT): RIGHT LEFT Bicep 2 2 Brachioradialis 2 2 Tricep 2 2 Patellar 2 2 Achilles 2 2 PATHOLOGICAL REFLEXES: RIGHT LEFT AGUILERA'S ABSENT ABSENT CLONUS ABSENT ABSENT BABINSKI ABSENT ABSENT Rectal Tone: INTACT SENSATION (0-4, NT): RUE-2LUE-2 RLE-2 LLE-2 Dermatomal deficit: L5-S1 RIGHT, mild GAIT AND FUNCTIONAL EVALUATION: -Ambulatory aids- INDEPENDENT -Rombergs test - NEG -Hand and finger dexterity intact bilaterally? YES -Dysdiadochokinesia examination negative bilaterally? YES -Toe heel walk / heel-toe walk intact while maintaining satisfactory balance? YES -Squatting/straightening w/o assistance to a min of 60 degree knee flexion? DIFFICULT -Single leg stance: ABLE -Trendelenburg sign NEGATIVE B/L IMAGING STUDIES FINDINGS XRAY No new x-rays taken in office today. Please see previous notes. CT N/A MRI N/A IMPRESSION: It was my pleasure to have seen and examined Carla. I reviewed the patient's clinical syndrome, physical findings, and imaging studies during the appointment today. It is my impression that the patient has a diagnosis of. 1. L5-S1 facet arthropathy 2. L5-S1 herniated nucleus pulposus, moderate 3. Left sacroiliitis PLAN: THERAPIES -Cont with Ice as warranted -Cont with supplementation Vit D, Vit C, Ca2+, High protein diet -OK for massage or other alternative treatment modalities as able.If it exacerbates your sx do not continue ACTIVITY -Avoid heavy or excessive BLPPT. MEDICATIONS -Take as directed -Cont home medications as directed by your PCP.Check with your PCP for any medication interactions or issues if needed. SURGICAL RECOMMENDATION - Left L5-S1 medial branch transection DISCUSSION: - Presently, I have recommended surgical intervention in the form of a left- sided L5-S1 medial branch transection. The patient had the most improvement from her fact joint injections, NOT the TF or JESUS that she had in the past. She stated that after the facet joint injection she was relieved by 80% for around 12 hrs, but that the pain then came back. She reported this to PMR as well. She states the other injections did not help her and if she was just out the pain she is having in her low back on the side she would be much happier. The radicular pain is much subsided and does not even really play a role currenly for her. We discussed different options for treatment, she would like to avoid any big surgical endeavours and we discussed that she does not need anything extreme at the moment, but that she would benefit from a smaller minimally invasive endoscopic procedure to transect the MB nerve to alleviate her pain. She agrees. The patient verbally understands all risks and benefits involved with the procedure and elects to proceed. She will obtain all necessary clearances and proceed with surgical intervention as scheduled in office today. Spine Surgery Risk Review Ms. Lundberg is presenting for evaluation of low back and left lower extremity pain . It was my pleasure to have seen and examined Ms. Lundberg. In our visit today we have had a chance to go over subjective complaints, physical examination findings and treatments including the natural course history without intervention and various interventional options. The patients imaging demonstrates: MRI scan without contrast from 09/18/22 at [facility] of the lumbar spine demonstrates: images reviewed with the patient - Images re-reviewed in office with the patient. L1-2 mild spondylotic changes with disc disc patient height loss L2-3 mild spondylotic changes L3-4 mild spondylotic changes L4-5 mild spondylotic changes L5-S1 moderate spondylosis with hydration loss in the disc height loss. No acute fracture noted. Minimal to no stenosis Alignment:stable Coronal alignment: Maintained Fracture: None Lesion: None X-Rays of Thoracic AP/lateral 2 views Lumbar AP/lateral 2 views taken on 12/01/21 of Lumbar, Cervical, Thoracic Spine: - Images re-reviewed in office with the patient. Demonstrated a double major thoracolumbar scoliosis.The cranial curve from T2 to T12 is approximately 29 convex right with a compensatory thoracolumbar curve from T12 L1 through L4 of 34.This is convex left. Pelvis in these films remains relatively level however there is a slight elevation of the right hemipelvis which is noted.sagittal images demonstrate a lumbar lordosis of 33 the pelvic incidence of 45. There is slight increase in thoracic kyphosis. There is no degenerative changes fractures dislocations or other bony abnormalities. On physical exam, Ms. Lundberg demonstrates: A continued "aching, burning" pain throughout the low back, mostly upon the left side, that radiates down into the left lower extremity. She states her left leg pain is associated with intermittent numbness and tingling. She notes her lumbar pain has been worsening over te last 2 to 3 months. The patient states her symptoms worsen after prolonged standing or walking. She reports experiencing severe sleep d isturbances related to her ongoing pain and associated symptoms. I have explained to the patient that as their condition progresses it will cause further neurological deficits and eventual paralysis. Based on the patients imaging, physical exam, and the rapid progression and disabling nature of their symptoms, at this time I recommend surgery in the form of a: Left L5-S1 medial branch transection. I discussed the risk and benefits of this procedure at length with Ms. Lundberg. The patient agreed to considered pursuing the procedure abovementioned. Prior to surgery, she should follow up with her PCP (Cardio, ID, IM etc) for clearance. Questions were invited and answered, and the patient wishes to proceed as outlined below. Currently, I am recommendin.Left L5-S1 medial branch transection 2.Review of surgical risks and benefits as well as an educational packet on the proposed surgical procedure. Risks: All surgical procedures come with inherent risks, including those related to positioning, anesthesia, intraoperative findings, and postoperative complications. It is important to understand that surgery does not come with any guarantee of a successful outcome as complications and adverse events are always possible. The patient was given a handout in office today discussing the surgical procedure and risks associated with the intervention, both of which were discussed with the patient. These risks include but are not limited to the following: * Experiencing same, different or even worse symptoms in back, neck, arms, or legs compared to before surgery. Requiring further surgery or other forms of treatment presently or at some time in the future at same or other levels of the intended spine surgery. On an extreme but fortunately relatively rare basis severe complication such as blindness, stroke, heart attack, temporary and/or permanent nerve injury, paralysis, coma, or may occur, sometimes without known explanation. Surgical complications may include but are not limited to risk of infection, fluid accumulation in the surgical dissection site, including a seroma or hematoma, that requires additional surgery, wound drainage, bleeding, new numbness or weakness, vision changes/loss, spinal fluid leakage, non-healing and/or infected incision, headaches, difficulty or inability to swallow, hoarseness, hemopneumothorax, pneumothorax, impotence, retrograde ejaculation, vaginal dryness; injury to nerves, spinal cord, blood vessels, lymphatics or other vital organs (i.e., bowel injury, injury to the great vessels); heterotopic bone formation; complications related to the hardware such as screws, rods, cages including misplaced hardware, device failure, instrumentation at the wrong spine level, hardware fracture/breakage, or hardware loosening; vertebral failure of the spinal column above or below the newly placed hardware; retained surgical instrumentations or devices and the need for further surgery. * Medical risks of the planned spine surgery include but are not limited to generalized Infections to the whole body or local areas outside of the surgical site (sepsis), heart attack, bleeding, anaphylaxis, meningitis, seizure, epilepsy, hearing loss, burn tavares, laceration of the head or other areas of the body, bruising, hypersensitivity of the skin, bladder over distension; allergic reaction; shoulder injury related to positioning; fat, blood and air clots to other areas of the body like heart, lungs, brain; failure of internal organs such as lungs, kidneys, liver and excessive bleeding. If blood transfusions are necessary, note that transfusions may cause intolerance reactions such as anaphylaxis or other complex reactions. Despite best efforts, the results of spine surgery might not heal in terms of bone, soft tissues such as skin, fascia, ligaments, and joints. Additionally, in order to achieve best possible results, spine surgery may be carried out beyond the initially planned levels and involve decompression, fusion including insertion of hardware at levels other than the original intended area of surgical interest change some portions of the procedure in order to ensure the best possible outcomes. With spine surgery and spinal fusion, there are different off label uses of instrumentation (devices, implants and hardware) as well as biological substances (bone morphogenic proteins, demineralized bone matrix) as well as using extra bone from allograft sources (i.e. cadaver bone) or autograft (iliac crest bone, ribs, or the spine itself). The patient has been given information about these practices and their inherent risks and benefits. [facility] is an educational center that serves as a training facility for neurosurgical and orthopedic [employer] and Nursing students. Physician assistants are medically trained surgical providers who function in the outpatient, inpatient, and operating room setting under the direct supervision of the attending surgeon. [facility] has multiple operating rooms with single and overlapping rooms running daily. They currently function under the required guidelines as produced by the [facility] Finance Committee with regards to the overlapping rooms and will continue to comply with changes to this policy as they occur. The requirements include and are complied with as follows: (1) the critical portions of the overlapping rooms will not occur at the same time, (2) the attending physician will be physically present during the critical portions of the procedure and immediately available during the entire case, and (3) a back-up attending is designated should the primary attending not be immediately available. The patient has had a chance to review all the listed information, has been given print outs detailing this information, and has had all his/her questions answered to their satisfaction. It was my pleasure to have seen and examined Ms. Lundberg. In our visit today we have had a chance to go over my understanding of our patient's current condition, the natural course history without intervention and various interventional options. Questions were invited and answered, and the patient wishes to proceed as outlined above. I have seen and examined the patient for 25 minutes and we have spent more than 50% of the time in repeat and detailed counseling about the patient's condition, its natural course history with out and as much as can be predicted with surgery and re-review of various surgical treatment options. In conclusion, Ms. Lundberg requested we proceed with the above suggested surgery and are willing to accept risks and limitations of the suggested surgery as nature of the disease process and our best attempts at treatment for the condition. Thank you again for allowing us to be part of your patient's care. Please don't hesitate to contact me if you have any further questions. FOLLOW UP: Post Procedure PATIENT EDUCATION: Medications Reviewed: YES In our visit today Ms. Lundberg and I have had a chance to go over my understanding of the patient's current condition, the natural course history without intervention and various interventional options. Questions were invited and answered, and the patient wishes to proceed as outlined above. I will be sure to keep you updated after Ms. Lundberg returns here for further follow-up. Thank you again for your referral. Please do not hesitate to contact me if you have any further questions. Signed and authenticated by: Emilio Coffman [facility] [address] [address] This message is confidential, intended only for the named recipient(s) and may contain information that is privileged or exempt from disclosure under applicable law. If you are not the intended recipient(s), you are notified that the dissemination, distribution or copying of this information is strictly proh ibited. If you received this message in error, please notify the sender then delete this message. # SIGNED BY Emilio Simon (GOO)01/30/2024 07:44AM Past Medical History Past Medical History: Asthma, GERD/Reflux, Musculoskeletal Disorder Additional Past Medical History / Comment(s): Scoliosis. Hx kidney stones. History of Any Multi-Drug Resistant Organisms: None Reported Past Surgical History: Section, Tubal Ligation, Uterine Ablation Additional Past Surgical History / Comment(s): Oral surgery, Section X3, endometrial ablation, lithotripsy, Pain Clinic Procedure. Past Anesthesia/Blood Transfusion Reactions: No Reported Reaction Additional Past Anesthesia/Blood Transfusion Reaction / Comment(s): No hx blood transfusion. Smoking Status: Current some day smoker - Past Family History Mother Family Medical History: Cancer Additional Family Medical History / Comment(s): uterine cancer Medications and Allergies Home Medications Medication Instructions Recorded Confirmed Type Pantoprazole Sodium [Protonix] 40 mg PO HS 09/23/20 02/08/24 History Ascorbic Acid [Vitamin C] 1,000 mg PO QAM 01/01/23 02/08/24 History Cholecalciferol [Vitamin D3 (125 125 mcg PO QAM 01/01/23 02/08/24 History Mcg = 5000 Iu)] traZODone HCL [Desyrel] 100 mg PO HS 01/01/23 02/08/24 History Cariprazine HCl [Vraylar] 4.5 mg PO HS 08/01/23 02/08/24 History Escitalopram [Lexapro] 10 mg PO HS 02/08/24 02/08/24 History Allergies Allergy/AdvReac Type Severity Reaction Status Date / Time amoxicillin AdvReac Unknown states Verified 02/08/24 10:11 never works for her. Physical Examination Osteopathic Statement: *. No significant issues noted on an osteopathic structural exam other than those noted in the History and Physical/Consult.
[~2024-02-14 05:46] MED LIST changes: -LACTATED RINGERS 1,000 ML IV SCH; +ONDANSETRON 4 MG/2 ML VIAL IVP PRN; +Pre Op ABX Message 1 EACH MISC MISCELLANE ONE; +TRANEXAMIC 1,000 MG/100ML-NACL 1,000 MG in SALINE 1 100ML.BAG IVPB PRN
[2024-02-14] MEDS: LACTATED RINGERS 1,000 ML IV ONE (06:33)
[2024-02-14] MEDS: LIDOCAINE 1% (10MG/ML) FOR IV START INTRADERMA PRN (06:34)
[2024-02-14] MEDS: ACETAMINOPHEN TAB 500 MG TAB PO PRN (06:34)
[2024-02-14] MEDS: DEXAMETHASONE SOD PHOSPHATE 4 MG/ML 1 ML VIAL IV ONE (06:34)
[2024-02-14] MEDS: ONDANSETRON 4 MG/2 ML VIAL IVP ONE (06:34)
[2024-02-14] MEDS: GABAPENTIN 300 MG CAP PO PRN (06:34)
[2024-02-14] MEDS ORDERED: HYDROmorphone 0.5 MG/0.5 ML SYRINGE IVP PRN (07:00)
[2024-02-14] MEDS ORDERED: MIDAZOLAM 2 MG/2 ML VIAL IV PRN (07:00)
[2024-02-14] MEDS ORDERED: LIDOCAINE 1% INJ 10MG/ML (20 ML MDV) ONE (07:24)
[2024-02-14] MEDS ORDERED: NEOSTIGMINE 1 MG/ML 10 ML VIAL ONE (07:24)
[2024-02-14] MEDS ORDERED: fentaNYL (PF) 50 MCG/ML 2 ML AMP ONE (07:24)
[2024-02-14] MEDS ORDERED: PROPOFOL 10 MG/ML 20 ML VIAL IV ONE (07:24)
[2024-02-14] MEDS ORDERED: GLYCOPYRROLATE 0.2 MG/ML 2 ML VIAL ONE (07:24)
[2024-02-14] MEDS ORDERED: MIDAZOLAM 2 MG/2 ML VIAL ONE (07:24)
[2024-02-14] MEDS ORDERED: SUCCINYLCHOLINE CHLORIDE 200 MG/10 ML VIAL IV ONE (07:24)
[2024-02-14] MEDS ORDERED: ROCURONIUM 10 MG/ML (5 ML VIAL) IV ONE (07:24)
[2024-02-14] MEDS: LIDOCAINE 2%-EPI 1:100,000 20 ML VIAL SQ ONE (07:46)
[2024-02-14] MEDS: BUPIVACAINE (PF) 0.5% 30 ML VIAL SQ ONE (07:46)
--- NOTE | 2024-02-14 08:20 | P.OP ---
Date of Procedure: 02/14/24 Preoperative Diagnosis: 1. L5-S1 FACET ARTHROSIS 2. L5-S1 SPONDYLOSIS, DDD 3. LOW BACK PAIN Postoperative Diagnosis: 1. L5-S1 FACET ARTHROSIS 2. L5-S1 SPONDYLOSIS, DDD 3. LOW BACK PAIN Procedure(s) Performed: 1. L5-S1 LEFT DIRECT VISUALIZATION MEDIAL BRANCH TRANSECTION Implants: NONE Anesthesia: RANDOLPHA Surgeon: Emilio Simon Mechanical Assembly Technician #1: Ravi Hinojosa (WAS PRESENT AND ASSISTED WITH ALL ASPECTS OF THE CASE FROM POSITION TO CLOUSRE) Estimated Blood Loss (ml): 5 IV fluids (ml): 1,000 Urine output (ml): 0 Pathology: none sent Condition: stable Disposition: PACU Indications for Procedure: Ms. Lundberg is presenting for evaluation of low back and left lower extremity pain . It was my pleasure to have seen and examined Ms. Lundberg. In our visit today we have had a chance to go over subjective complaints, physical examination findings and treatments including the natural course history without intervention and various interventional options. The patients imaging demonstrates: MRI scan without contrast from 09/18/22 at [facility] of the lumbar spine demonstrates: images reviewed with the patient - Images re-reviewed in office with the patient. L1-2 mild spondylotic changes with disc disc patient height loss L2-3 mild spondylotic changes L3-4 mild spondylotic changes L4-5 mild spondylotic changes L5-S1 moderate spondylosis with hydration loss in the disc height loss. No acute fracture noted. Minimal to no stenosis Alignment:stable Coronal alignment: Maintained Fracture: None Lesion: None X-Rays of Thoracic AP/lateral 2 views Lumbar AP/lateral 2 views taken on 12/01/21 of Lumbar, Cervical, Thoracic Spine: - Images re-reviewed in office with the patient. Demonstrated a double major thoracolumbar scoliosis.The cranial curve from T2 to T12 is approximately 29 convex right with a compensatory thoracolumbar curve from T12 L1 through L4 of 34.This is convex left. Pelvis in these films remains relatively level however there is a slight elevation of the right hemip kaylyn which is noted.sagittal images demonstrate a lumbar lordosis of 33 the pelvic incidence of 45. There is slight increase in thoracic kyphosis. There is no degenerative changes fractures dislocations or other bony abnormalities. On physical exam, Ms. Lundberg demonstrates: A continued "aching, burning" pain throughout the low back, mostly upon the left side, that radiates down into the left lower extremity. She states her left leg pain is associated with intermittent numbness and tingling. She notes her lumbar pain has been worsening over te last 2 to 3 months. The patient states her symptoms worsen after prolonged standing or walking. She reports experiencing severe sleep disturbances related to her ongoing pain and associated symptoms. I have explained to the patient that as their condition progresses it will cause further neurological deficits and eventual paralysis. Based on the patients imaging, physical exam, and the rapid progression and disabling nature of their symptoms, at this time I recommend surgery in the form of a: Left L5-S1 medial branch transection. I discussed the risk and benefits of this procedure at length with Ms. Lundberg. The patient agreed to considered pursuing the procedure abovementioned. Prior to surgery, she should follow up with her PCP (Cardio, ID, IM etc) for clearance. Questions were invited and answered, and the patient wishes to proceed as outlined below. Currently, I am recommendin.Left L5-S1 medial branch transection Description of Procedure: L5-S1 LEFT MBT The patient was seen and examined in the preoperative area. All preoperative protocols were followed. Informed consent was obtained, risks and benefits of the procedure were discussed at length. Risks including bleeding infection damage to the surrounding tissue and risk of reoperation were discussed with the patient. Risk of anesthesia up to and including was discussed with the patient. These are outlined in the risk review. They were willing to accept these risks and all of the risks of surgery. The patient was given a weight- based dose of antibiotics in the form of 2 g Ancef. The patient was seen and evaluated by the anesthesia team who deemed them fit for surgery. The site was marked, the patient was willing to proceed with the procedure. The patient was transferred to the operative suite by the Department of anesthesia. They were then drifted off to sleep by the department anesthesia and GETA was performed. The patient tolerated this well. Once confirmation of lines and ventilation the patient was transferred to a [prone [place] table very carefully]. All bony prominences including wrists, elbows, axilla, chest, hips, and thighs, and feet were padded very well. Special attention was paid to the genitalia and these were padded accordingly. SCDs were placed on bilateral lower extremities and were connected. Arms were well padded and placed [on arm boards up and out in the 90/90 position]. Once in position, again we confirmed good ventilation capabilities and that lines were running appropriately. The patient's lumbar spine was then exposed. 1010s were placed outlining the incision site. Standard alcohol was used to clean the incision site and allowed to dry. C-arm was used to biomark the patient and confirm level for incision which was marked with a skin marker. Operative briefing was performed with all teams and everyone in agreement to proceed. The patient was then prepped and draped in a normal sterile fashion. Timeout was then performed and all parties were in agreement with the procedure to be performed. 18-gauge needle and was then used to localize the left side L5-S1 facet joint. Lidocaine 2% with epi and Marcaine .25% w/o placed in this area. Skin sindi was then made and a trocar for the scope was entered. X-ray used to localize this area. Once this was confirmed a accessory portal was made and a trocar placed through here. We then used the ArthroCare wand to skeletonize the transverse process on the left-hand side at L5-S1 as well as sacral ala. This was then followed out medially until the L5-S1 facet joint medially and mamillary process was identified as well as the ligament in this area. Nerve was identified at L5-S1 level and visualized directly when it was transected. ArthroCare wand was then used to burn the area to retract the nerve ends. The scope was lavaged with pictures taken in this area and inspected there was no damage or issues and no bleeding. The scope was removed The wounds were then cleaned and simple stitches were placed in the skin and they were glued. These were then dressed sterilely with Band-Aids. The patient was transferred back to their hospital bed atraumatically. Patient was then awakened and extubated by the department of anesthesia having tolerated the procedure very well with no complications. They were transferred to the postoperative care unit in stable condition.
--- NOTE | 2024-02-14 08:39 | FL ---
EXAMINATION TYPE: FL guidance operating room Intraoperative/procedural fluoroscopic services were pro vided. Total fluoroscopy time is 37.4 seconds with a total of 5 submitted images to PACS. Please see the operative/procedural note for further details. DAP: 8.709 Gycm2
--- NOTE | 2024-02-14 09:09 | XR ---
EXAMINATION TYPE: XR lumbar spine 1V DATE OF EXAM: 02/14/2024 FLUOROSCOPY L5-S1 Herniation 8.7 Gycm2 DAP 29sec 5 images submitted
[2024-02-14 09:18] VITALS: RESP 16; TEMP 97.1
[2024-02-14] MEDS: HYDROmorphone 0.5 MG/0.5 ML SYRINGE IVP ONE (09:21)
[2024-02-14] MEDS: LACTATED RINGERS 1,000 ML IV SCH (09:45)
[2024-02-14 10:13] VITALS: BP 124/84; PULSE 72
== END 2024-02-14 10:37 | disposition home or self-care (01) ==
LOC: OR 05:46
PROVIDERS: ATTEND Orthopaedic Surgery
DX: M51.37 Other intervertebral disc degeneration, lumbosacral region (principal); M47.817 Spondylosis without myelopathy or radiculopathy, lumbosacral region; M46.1 Sacroiliitis, not elsewhere classified; F17.200 Nicotine dependence, unspecified, uncomplicated; J45.909 Unspecified asthma, uncomplicated; K21.9 Gastro-esophageal reflux disease without esophagitis; Z98.51 Tubal ligation status; Z98.891 History of uterine scar from previous surgery; Z80.49 Family history of malignant neoplasm of other genital organs; Z79.899 Other long term (current) drug therapy; Z88.0 Allergy status to penicillin; Z98.1 Arthrodesis status
CPT/HCPCS: 64772; 81025; 72020; J2250; J0330; J1100; J2710; J0690; J2405; J2001; J3010; J2704; J1170; J0665